=== PATIENT | male | born 1960 | race Caucasian/White ===

== ENCOUNTER 2023-11-21 13:58 | Outpatient (AMB) | payer OTHER, SELFPAY ==
[2023-11-21 14:04] VITALS: BP 90/60; PULSE 85; RESP 12; TEMP 36.4; O2SAT 98; BMI 23.4
--- NOTE | 2023-11-21 14:04 | MHC.PC.OV ---
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 ?? Prior PCP:?Dr Godinez Last office visit/CPE:? 3 yrs ago Acute issue(s):? Concern for Urology [facility] Lumps of skin ?? PMHx:? Hx Substance abuse in remission, L Femur Fx. Bee sting allergy SurgHx:?L femur ORIF. Lt Hip FHx:?Mom: Cancer (unknown origin). Dad: EtOH. SocHx:? Smoking 3/4 ppd. EtOH None. Cocaine. Acid in 90s HPI Comments History of Present Illness Details Documentation assistance for Gabo Degroot MD, was provided by William Clifton,? [employer] on 11/21/2023 at 2:48 PM EST. I, Dr. Degroot, have read, observed, and verified documentation. [facility] Medical History (Updated 11/21/23 @ 14:47 by William Clifton) Femur fracture, left Surgical History (Updated 11/21/23 @ 14:30 by William Clifton) History of left hip replacement Social History Housing: Apartment Patient Tobacco Use Status: Current everyday Tobacco user Tobacco use type: Cigarette Cigarette Packs Per Day: 20 Cigarettes Per Day: 12 e-Cigarette/Vaping Use: Never Used Second Hand Smoke Exposure: Yes service: No Current occupational status: employed Current occupation: maintence Current occupational exposures/hazards: Yes Cognitive needs: No Hearing needs: No Vision needs: Yes Questionnaire PHQ-9 Over the last 2 weeks, how often have you been bothered by any of the following problems? 1. Little interest or pleasure in doing things: not at all 2. Feeling down, depressed, or hopeless: not at all 3. Trouble falling or staying asleep, or sleeping too much: not at all 4. Feeling tired or having little energy: not at all 5. Poor appetite or overeating: nearly every day 6. Feeling bad about yourself - or that you are a failure or have let yourself or your family down: not at all 7. Trouble concentrating on things, such as reading the newspaper or watching television: not at all 8. Moving or speaking so slowly that other people could have noticed. Or the opposite - being so fidgety or restless that you have been moving around a lot more than usual: not at all 9. Thoughts that you would be better off or of hurting yourself in some way: not at all Total score: 3 Depression Screening Interpretation: Negative Depression Screening Done: Yes 88149 - PHQ-9 Billing: Yes Source: Developed by Drs. Richard Heredia, Aide Medina, Dorian Limon and colleagues, with an educational ivelisse from [employer]. Thrive Questionnaire Date Thrive assessed: 11/21/23 I am a: Patient What is your living situation today?: I have a steady place to live Within the past 12 months, did the food you bought not last and you didn't have the money to get more?: Never true Within the past 12 months, did you worry whether your food would run out before you got money to buy more?: Never true Do you have trouble paying for medicines?: No Do you have trouble getting transportation to medical appointments?: No Do you have trouble paying your heating and electricity bill?: No Do you have trouble taking care of your child, family member or friend?: No Do you have trouble with day-to-day activities such as bathing, preparing meals, shopping, managing finances, etc.?: No Are you currently unemployed and looking for a job?: No Are you interested in more education?: No Please select the resources that you would like help with: None Currently or been in a relationship where the following occur: No concerns reported THRIVE Score: 0 AUDIT C Alcohol Use Questionnaire (AUDIT-C) 1. How often do you have a drink containing alcohol?: Never 3. How often do you have six or more drinks on one occasion?: Never Total Score: 0 Score Reviewed/Action Taken: Yes SOPHIA-7 AMB Questionnaire SOPHIA-7 Date SOPHIA - 7 assessed: 11/21/23 Feeling nervous, anxious, or on edge: 0 = Not at all Not being able to stop or control worryin = Not at all Worrying too much about different things: 0 = Not at all Trouble relaxin = Not at all Being so restless that it is hard to sit still: 0 = Not at all Becoming easily annoyed or irritable: 0 = Not at all Feeling afraid as if something awful might happen: 0 = Not at all Total SOPHIA-7 score (0-4 normal; 5-9 mild; 10-14 moderate; 15-21 severe): 0 Source: Developed by Drs. Richard Heredia, Aide Medina, Dorian Limon and colleagues, with an educational ivelisse from [employer]. SOPHIA-7 Assessment Billing SOPHIA-7 Assessment Tool: SOPHIA-7 Assessment 18536 Review of Systems Const Denies chills, Denies fatigue, Denies fever(s), Denies headache(s) and Denies weakness ENT Denies dizziness and Denies headache(s) Card Denies chest pain, Denies lightheadedness, Denies dyspnea and Denies other (Palpitations) Resp Denies cough, Denies dyspnea, Denies wheezing and Denies other ( shortness of breath) Musc Denies numbness and Denies tingling Neuro Denies dizziness, Denies headache(s), Denies numbness, Denies tingling, Denies paresthesias and Denies weakness Psych Denies anxiety and Denies depression Endo Denies fatigue Aller/Immun Denies wheezing Physical exam (Primary Care) BMI result Body Mass Index 23.4 Depression Screening Interpretation: Negative Currently or been in a relationship where the following occur: No concerns reported Const General: no acute distress and well developed Nutritional Appearance: well nourished Orientation/consciousness: patient oriented x3 HENMT Head: Yes normocephalic and Yes atraumatic Eyes General: appearance normal, both eyes and all related structures Pupils: Equal, round and reactive pupils present EOM: EOMs intact bilaterally Resp Effort & Inspection: normal respiratory effort Auscultation: clear to auscultation bilaterally Cardio Rate: regular rate Rhythm: regular rhythm Heart sounds: S1 normal heart sound present, S2 normal heart sound present, no gallops, no murmurs and no rubs Neuro General: patient oriented x3 and gait normal Cranial nerves: Yes Equal, round and reactive pupils present Psych Affect: normal affect Assessment and Plan Assessment & Plan (1) Acute cystitis without hematuria: Code(s): N30.00 - Acute cystitis without hematuria Plan: Patient?had?episode?of?acute?urinary?retention?and?cystitis?without?hematuria Was?followed?by?Urology?but?lost?insurance?and?was?unable?to?follow-up. Will?check?urinalysis?and?urine?cytology Referring?him?back?to?[facility]?urology?for?further?evaluation?and?treatment Also?strongly?recommended?quitting?smoking-see?below Continue?tamsulosin (2) Acute urinary retention: Code(s): R33.8 - Other retention of urine Plan: As?above (3) History of left hip replacement: Code(s): Z96.642 - Presence of left artificial hip joint Plan: Stable (4) Lump on neck: Code(s): R22.1 - Localized swelling, mass and lump, neck Plan: Patient?has?fluctuant?and?mobile?lump?on?neck?and?back, consistent?with?lipoma. No?intervention?is?required?at?this?time He?will?let?me?know?if?this?gets?irritated?or?larger?at?which?point?we?could?refer?him?to?Dermatology?for?removal (5) Lump of skin of back: Code(s): R22.2 - Localized swelling, mass and lump, trunk Plan: As?above (6) Smoker: Code(s): F17.200 - Nicotine dependence, unspecified, uncomplicated Plan: Patient?has?been?smoking?an?equivalent?of?greater?than?20?pack?years Qualifies?for?low-dose?CT?screening - ordered We?discussed?smoking?cessation?and?patient?wants?to?try?Chantix - sent?script We?can?follow-up?at?next?visit (7) History of substance abuse: Code(s): F19.11 - Other psychoactive substance abuse, in remission Plan: Distant?history?of?substance?abuse No?longer?using?any?substances?x?many?years (8) Laboratory exam ordered as part of routine general medical examination: Code(s): Z00.00 - Encounter for general adult medical examination without abnormal findings Plan: Check?labs Orders: Orders Comprehensive [place]. Panel Fast Today Z00.00 - Encounter for general adult medical examination without abnormal findings Microalbumin, Random (w Creat) Today I10 - Essential (primary) hypertension Complete Blood Count Auto Diff Today Z00.00 - Encounter for general adult medical examination without abnormal findings CT lung screening Today F17.200 - Nicotine dependence, unspecified, uncomplicated Prostate Specific Antigen Scr Today Z12.5 - Encounter for screening for malignant neoplasm of prostate Lipid Panel Today Z00.00 - Encounter for general adult medical examination without abnormal findings UA and rflx microscopic Today Z00.00 - Encounter for general adult medical examination without abnormal findings TSH reflex Free T4 Today Z00.00 - Encounter for general adult medical examination without abnormal findings Urine Cytology Today N30.00 - Acute cystitis without hematuria, R33.8 - Other retention of urine Referrals Urology Referral N30.00 - Acute cystitis without hematuria Coding Level of Care Code New Pt Level 3 (87003) Diagnoses Acute cystitis without hematuria N30.00 Acute urinary retention R33.8 History of left hip replacement Z96.642 Lump on neck R22.1 Lump of skin of back R22.2 Smoker F17.200 History of substance abuse F19.11 Laboratory exam ordered as part of routine general medical examination Z00.00 Additional Codes SOPHIA-7 Assessment Billing - SOPHIA-7 Assessment Tool: SOPHIA-7 Assessment 13051 ([id number])
== END 2023-11-21 14:52 | disposition home or self-care (01) ==
PROVIDERS: PCP Family Medicine; Visit Provider Family Medicine
DX: N30.00 Acute cystitis without hematuria (principal); R33.8 Other retention of urine; F19.11 Other psychoactive substance abuse, in remission; Z96.642 Presence of left artificial hip joint; R22.1 Localized swelling, mass and lump, neck; R22.2 Localized swelling, mass and lump, trunk; F17.210 Nicotine dependence, cigarettes, uncomplicated
CPT/HCPCS: 99203

== ENCOUNTER 2023-12-12 11:58 | Emergency (ER) | payer OTHER, SELFPAY ==
--- NOTE | 2023-12-12 12:30 | ED.GENADULT ---
HPI - General Adult General Chief complaint: Abdominal Pain Stated complaint: Unable to urinate Time Seen by Provider: 12/12/23 13:02 Source: patient, family and old records reviewed Mode of arrival: ambulatory Limitations: no limitations History of Present Illness ED Provider: LUCI HAGAN narrative: 63 yo male with PMH of enlarged prostate prior doll cath back in May and UTI in past though no cultures in our system here with c/o 4 days dysuria and feeling he is not emptying his bladder. He denies n/v flank pain or fevers. Has PCP now and follow up with Urology in December. MD complaint: dysuria and retention Onset (ago): day(s) (4) Location: abdomen Radiation: abdomen Severity: mild Quality: burning Pain Consistency: intermittent Relieving factors: none Exacerbating factors: other (urination) Associated symptoms: denies other symptoms Treatments prior to arrival: none Related Data Home Medications ?Medication ?Instructions ?Recorded ?Confirmed epinephrine 0.3 mg/0.3 mL 0.3 mg IM Q4H PRN 11/21/23 11/21/23 injection, auto-injector tamsulosin 0.4 mg capsule 0.4 mg PO DAILY 11/21/23 11/21/23 Previous Rx's ?Medication ?Instructions ?Recorded varenicline 0.5 mg (11)-1 mg (42) See Rx Instructions PO PER PKG DIR 11/21/23 tablets in a dose pack #53 ea cefuroxime axetil 250 mg tablet 250 mg PO BID 10 days #20 tabs 12/12/23 Allergies Allergy/AdvReac Type Severity Reaction Status Date / Time bee pollen Allergy Anaphylaxis Verified 12/12/23 12:36 Review of Systems Review of Systems: Constitutional : No Weight loss, No Fever, No Chills ENT/Mouth : No sore throat, No Rhinorrhea Eyes: No Swelling, No Redness Cardiovascular : No Chest Pain, No SOB, NoEdema Respiratory : No Cough, No Sputum, No Wheezing Gastrointestinal : no Nausea, no Vomiting, no Diarrhea, positive abdominal Pain, No Hematochezia, No Melena Genitourinary : pos Dysuria, No Urinary Frequency, No Hematuria, No Urgency Musculoskeletal : No joint pain, No Myalgias, No Joint Swelling Skin : No Skin Lesions, No rash Neuro : No Weakness, No Numbness, No Dizziness, No Headache All other systems reviewed and are negative. PMFSH Past Medical History Attestation statement: The following information was validated with the patient. Source: old records reviewed Medical History Femur fracture, left Surgical History History of left hip replacement Social History Social History Housing: Apartment Patient Tobacco Use Status: Current everyday Tobacco user Tobacco use type: Cigarette Cigarette Packs Per Day: 20 Cigarettes Per Day: 12 e-Cigarette/Vaping Use: Never Used Second Hand Smoke Exposure: Yes Advance Directives: No Advance Directives Information Provided: Yes service: No Current occupational status: employed Current occupation: maintence Current occupational exposures/hazards: Yes Cognitive needs: No Hearing needs: No Vision needs: Yes Physical Exam ED Vital Signs: Vital Signs - 24 hr 12/12/23 12:31 Temperature 98.6 F Pulse Rate 90 Respiratory Rate 16 Blood Pressure 116/79 Pulse Oximetry 97 Oxygen Delivery Method Room Air BMI result Body Mass Index 23.7 Appearance: Alert. Oriented X3. No acute distress. Eyes: Pupils equal, round and reactive to light. ENT: Pharynx normal. Neck: Normal inspection. Neck supple. CVS: Normal heart rate and rhythm. Pulses normal. Respiratory: No respiratory distress. Breath sounds normal. Abdomen: Soft and nontender. Skin: Skin warm and dry. Normal skin color. Normal skin turgor. Extremities: No lower extremity edema. No calf ttp Neuro: Oriented X 3. No motor deficit. No sensory deficit. Course Course Course Narrative: This is a Rapid Medical Examination (RME) performed by Ramiro Weeks PA-C in triage. Full HPI, ROS, assessment and treatment plan per primary provider in the Main ED. 63 yo male here for eval of urinary hesitancy, incomplete bladder emptying, dysuria, lower abd pain x4 days. able to urinate small amount ROLFER in ED. taking flomax as prescribed. hx of acute cystitis w/ enlarged prostate requiring doll cath in 05/2023. has f/u w/ urologist next month for prostate eval/ cancer testing. no fever/ chills, N/V, flank pain, hematuria. + well appearing, drinking coffee. abd soft, ND/NT. Plan: labs, UA Medical Decision Making Medical Decision Making [facility] Narrative: 63 yo male with PMH of enlarged prostate prior doll cath back in May and UTI here with c/o retention though PVR only 185 at this time labs and UA ordered suspect UTI vs retention bases off history. He has no n/v or fevers and no pain to suggest stone. He is not retaining so I do not want to place doll and he has good outpatient follow up. Will order PSA his PCP can follow up with he is aware they need to follow up Differential Diagnosis Differential Diagnoses: The differential diagnosis associated with the presentation includes retention, UTI Admission/Observation Consideration of admission/observation: Escalation of care including admission/observation considered afebrile, normal kidney function, no vomiting no retention can be started on abx and DC home Lab Data [facility] Lab Attestation statement: I reviewed the patient's lab results. 12/12/23 12:45 12/12/23 12:45 Labs: Lab Results 12/12/23 Range/Units 12:45 WBC 8.4 (4.8-10.8) X10*3/uL RBC 4.88 (4.60-5.80) X10*6/uL Hgb 16.2 (14.0-18.0) g/dl Hct 46.3 (42.0-52.0) % MCV 94.9 (80.0-98.0) fL MCH 33.2 H (27.0-33.0) pg MCHC 35.0 (31.0-36.0) g/dl RDW 13.2 (11.0-16.0) % Plt Count 227 (160-400) X10*3/uL MPV 8.6 L (9.4-12.4) fL Immature Gran % (Auto) 0.2 (0.0-0.4) % Neut % (Auto) 66.4 (45-73) % Lymph % (Auto) 21.3 (20-40) % [place] % (Auto) 7.6 (2-11) % Eos % (Auto) 3.9 (0-4) % Baso % (Auto) 0.6 (0-2) % Lymph # (Auto) 1.8 (1.2-4.9) X10*3/uL [place] # (Auto) 0.6 (0.1-1.2) X10*3/uL Eos # (Auto) 0.3 (0.0-0.4) X10*3/uL Baso # (Auto) 0.1 (0.0-0.2) X10*3/uL Abs Immat Gran (auto) 0.02 (0.00-0.03) X10*3/uL Absolute Neuts (auto) 5.6 (2.0-8.3) x10*3/uL Absolute Nucleated RBC 0.000 (0.0-0.012) X10*3/uL Nucleated RBC % (auto) 0.0 (0.0-0.2) /100WBC Sodium 140 (135-145) mmol/L Potassium 4.6 (3.3-5.1) mmol/L Chloride 109 H (96-108) mmol/L Carbon Dioxide 25 (22-29) mmol/L Anion Gap 11 L (12-20) BUN 18 H (9-16) mg/dL Creatinine 1.01 (0.5-1.4) mg/dL Estim Creat Clear Calc 75.8 Estimated GFR > 60 Random Glucose 141 H (60-115) mg/dL Calcium 9.9 (8.4-10.2) mg/dL Total Bilirubin 0.5 (0.0-1.0) mg/dL AST 15 (5-37) U/L ALT 15 (0-40) U/L Alkaline Phosphatase 73 (39-117) U/L Total Protein 6.0 L (6.5-8.0) g/dL Albumin 3.6 (3.5-5.0) g/dL Urine Color Yellow Urine Appearance Turbid Urine pH 7.5 (5.0-9.0) Ur Specific [place] 1.020 (1.005-1.025) Urine Protein 300 (3+) H (Neg-Trace) mg/dL Urine Glucose (UA) Negative (Negative) mg/dL Urine Ketones Negative (Negative) mg/dL Urine Blood Moderate (2+) H (Negative) Urine Nitrite Negative (Negative) Ur Leukocyte Esterase Large (3+) H (Negative) Urine RBC 6-10 H (0-2) /HPF Urine WBC >50 H (0-5) /HPF Ur Squamous Epith Cells 0-2 (0-2) /HPF Urine Bacteria 4+ (None Seen) Hyaline Casts 3-5 (0-2) /LPF Independent Historian Clinical information obtained from an independent historian. History obtained from or confirmed by: Other (family) External Record Review External record reviewed: Office record Prescription Management I considered prescription management with: Antibiotic Discharge Plan Discharge Clinical Impression: Acute UTI Patient Disposition: Home, Self-Care Instructions: Urinary Tract Infection in Men (ED) Additional Instructions: labs reassuring kidney function normal take next dose of antibiotic before bed tonight continue the flomax you were not retaining urine after you voided return for fevers, severe back pain, vomiting or any other concerns a PSA was sent off your PCP can follow up or urology Prescriptions: New cefuroxime axetil 250 mg tablet 250 mg PO BID 10 Days Qty: 20 0RF No Action tamsulosin 0.4 mg capsule 0.4 mg PO DAILY epinephrine 0.3 mg/0.3 mL auto-injector 0.3 mg IM Q4H PRN varenicline 0.5 mg (11)- 1 mg (42) tablets,dose pack See Rx Instructions PO PER PKG DIR Qty: 53 0RF Rx Instructions: PO PER PKG DIR Print Language: Japanese
[2023-12-12 12:31] VITALS: BP 116/79; PULSE 90; RESP 16; TEMP 37; O2SAT 97; BMI 23.7
[2023-12-12 12:52] LABS: MANUAL DIFF FLAG NO
[2023-12-12 12:55] LABS: Appearance Urine Turbid; Basophils Absolute Auto 0.1 X10*3/uL (0.0-0.2); Basophils Percent Auto 0.6 % (0-2); Color Urine Yellow; Eosinophils Absolute Auto 0.3 X10*3/uL (0.0-0.4); Eosinophils Percent Auto 3.9 % (0-4); Glucose Urine UA Negative (Negative); Hematocrit 46.3 % (42.0-52.0); Hemoglobin 16.2 g/dl (14.0-18.0); Imm Gran Abs Auto 0.02 X10*3/uL (0.00-0.03); Imm Gran Pct Auto 0.2 % (0.0-0.4); Leukocyte Esterase Urine Large (3+) (Negative); Lymphocytes Absolute Auto 1.8 X10*3/uL (1.2-4.9); Lymphocytes Percent Auto 21.3 % (20-40); Mean Corpuscular Hemoglobin 33.2 pg (27.0-33.0); Mean Corpuscular Volume 94.9 fL (80.0-98.0); Mean Platelet Volume 8.6 fL (9.4-12.4); Monocytes Absolute Auto 0.6 X10*3/uL (0.1-1.2); Monocytes Percent Auto 7.6 % (2-11); Neutrophils Absolute Auto 5.6 x10*3/uL (2.0-8.3); Neutrophils Percent Auto 66.4 % (45-73); Nitrite Urine Negative (Negative); PH 7.5 (5.0-9.0); Platelet Count 227 X10*3/uL (160-400); Red Blood Count 4.88 X10*6/uL (4.60-5.80); Red Cell Distribution Width 13.2 % (11.0-16.0); UMIC TRIGGER UACC YES; Urine Blood Moderate (2+) (Negative); Urine Ketones Negative (Negative); Urine Protein 300 (3+) mg/dL (Neg-Trace); White Blood Count 8.4 X10*3/uL (4.8-10.8)
[2023-12-12 13:06] LABS: Bacteria Urine 4+ (None Seen); Squamous Epithelial Cell Urine 0-2 /HPF (0-2); UACC Culture Trigger YES; WBC Urine >50 /HPF (0-5)
[2023-12-12 13:16] LABS: Alanine Aminotransferase 15 U/L (0-40); Albumin Level 3.6 g/dL (3.5-5.0); Alkaline Phosphatase 73 U/L (39-117); Anion Gap 11 (12-20); Aspartate Amino Transferase 15 U/L (5-37); Bilirubin Total 0.5 mg/dL (0.0-1.0); Blood Urea Nitrogen 18 mg/dL (9-16); Calcium 9.9 mg/dL (8.4-10.2); Carbon Dioxide 25 mmol/L (22-29); Chloride 109 mmol/L (96-108); Creatinine Clr Calc Pharmacy 75.8; Estimated Glomerular Filt Rate > 60; Glucose Random 141 mg/dL (60-115); Potassium 4.6 mmol/L (3.3-5.1); Sodium 140 mmol/L (135-145)
[2023-12-12] MEDS: cefuroxime axetiL 250 MG TABLET PO (13:38)
[2023-12-12 13:58] VITALS: BP 116/79; PULSE 90; RESP 16; TEMP 37; O2SAT 97
[2023-12-12 14:35] LABS: Prostate Specific Antigen Scr 1.65 ng/mL (<0.05-4.0)
== END 2023-12-12 14:01 | disposition home or self-care (01) ==
PROVIDERS: Physician Assistant Medical; Emergency Provider Emergency Medicine; PCP Family Medicine
DX: N39.0 Urinary tract infection, site not specified (principal); R30.0 Dysuria; F17.210 Nicotine dependence, cigarettes, uncomplicated; F19.11 Other psychoactive substance abuse, in remission; Z79.899 Other long term (current) drug therapy
CPT/HCPCS: 36415; 51798; 80053; 81001; 84153; 85025; 87086; 87147; 99283; 99284

== ENCOUNTER 2024-01-26 15:21 | Outpatient (REF) | payer OTHER, SELFPAY ==
[2024-01-26 17:17] LABS: Urine Cytology See Pathology rpt
== END 2024-01-26 15:22 | disposition home or self-care (01) ==
LOC: HO.LNP 15:21
PROVIDERS: PCP Family Medicine; Visit Provider Nurse Practitioner Family
DX: Z87.898 Personal history of other specified conditions (principal); N39.41 Urge incontinence; R39.15 Urgency of urination; R33.9 Retention of urine, unspecified; F17.200 Nicotine dependence, unspecified, uncomplicated
CPT/HCPCS: 51798; 81003; 88112; 99202

== ENCOUNTER 2024-01-26 15:21 | Outpatient (AMB) | payer OTHER, SELFPAY ==
--- NOTE | 2024-01-26 15:24 | A.OFFVIS_ITS ---
Intake Visit Reasons: acute cystitis without hematuria Intake Note: New Patient presents for initial visit for cystitis and urinary retention Urology Medications: tamsulosin Blood Thinner: none PVR: 250ml's Senior Construction Manager Required: No Accompanied by: Unknown Allergies bee pollen Allergy (Verified 01/26/24 20:32) Anaphylaxis Medication List - Last Reconciled 01/26/24 by CELSA Mccann epinephrine 0.3 mg IM Q4H PRN tamsulosin 0.4 mg PO DAILY varenicline PO PER PKG DIR HPI Comments Details: Kevin Butts is a very pleasant 63-year-old male patient of Dr. Degroot who was accompanied by his significant other at today's office visit. Has a past medical history of left femur fracture in 2021. He presents to the office today as a new patient for ongoing urological issues. He reports initially symptoms started status post left femur fracture repair when he experienced episode of urinary retention. He reports previously following up with [facility] however lost his insurance and was unable to follow- up. He discusses having had what sounds like an in office cystoscopy and being told he potentially had bladder cancer however never underwent further treatment options as he lost his insurance. In office urinalysis results reviewed with the patient today no microscopic hematuria noted. However PVR 250 mL. We discussed at length potential causes for bladder cancer as well as incomplete bladder emptying. Discussed obtaining CT urogram and repeat in office cystoscopy for further assessment evaluation. He does have a longstanding history of nicotine dependence for over 40 years. He reports he has started Chantix with his PCP in attempt to quit smoking. He also notes upon in office cystoscopy with previous urologist there was mentioned of a potential need for prostate procedure. In review of patient's chart it appears PSA 12/22 1.7. He does report noting at times issues with urinary hesitancy and feeling of incomplete bladder emptying. Reports compliance with Flomax 0.4 mg daily as prescribed by previous urology group. He otherwise denies urinary urgency, urinary frequency, incontinence, nocturia, dysuria, foul smelling urine, changes to urinary stream, flank pain, fever, and or chills. [facility] Medical History Femur fracture, left Surgical History History of left hip replacement Social History Housing: Apartment Patient Tobacco Use Status: Current everyday Tobacco user Tobacco use type: Cigarette Cigarette Packs Per Day: 20 Cigarettes Per Day: 12 e-Cigarette/Vaping Use: Never Used Second Hand Smoke Exposure: Yes service: No Current occupational status: employed Current occupation: maintence Current occupational exposures/hazards: Yes Cognitive needs: No Hearing needs: No Vision needs: Yes Review of Systems Const All systems reviewed & are unremarkable except as noted in HPI and below Physical Exam Const General: cooperative, healthy appearing, comfortable, no acute distress, well developed, alert and awake Orientation/consciousness: patient oriented x3 Limitations: no limitations HEENT Head: Yes normal to inspection, Yes normocephalic and Yes atraumatic Ears: hearing grossly normal bilaterally Eyes General: appearance normal, both eyes and all related structures Neck Neck: Yes normal visual inspection and Yes trachea midline Chest Chest palpation & inspection: normal inspection of the chest Resp Effort & Inspection: normal respiratory effort and able to speak in complete sentences Cardio Rate: regular rate GI Inspection: Yes normal to inspection General: Yes no CVA tenderness Back/Spine/Pelvis Back: no CVA tenderness Skin General skin exam: no rashes or lesions noted Neuro General: patient oriented x3 Extrem General: Yes normal to inspection Psych Appearance: grossly normal and well kempt Mental Status: mental status grossly normal Speech and movement: Normal speech and movement present and Clear speech present Affect: normal affect Attitude: cooperative Thought process: Normal thought process present Thought content: Normal thought content present Insight: Fair insight present (Psych) Judgement: Fair judgement present (Psych) Office Procedures Post Void Residual Post Residual Void Post Void Residual (PVR): 250 [id number]-[id number] Void Residual by ultrasound Results AMB Urinalysis, Automated UA Leukoctes 0 Christoph/uL Last Edit by Cyril Bond on 01/26/24 16:26 UA Nitrite Last Edit by Cyril Bond on 01/26/24 16:26 UA Urobilinogen 0.2 mg/dL Last Edit by Cyril Bond on 01/26/24 16:26 UA Protein 15 mg/dL Last Edit by Cyril Bond on 01/26/24 16:26 UA pH 6.0 Last Edit by Cyril Bond on 01/26/24 16:26 UA Blood 0 Tony/uL Last Edit by Cyril Bond on 01/26/24 16:26 UA Specific [place] 1.030 Last Edit by Cyril Bond on 01/26/24 16:26 UA Ketone Last Edit by Moda Operandibrenda Bond on 01/26/24 16:26 UA Bilirubin 0 mg/dL Last Edit by Cyril Bond on 01/26/24 16:26 UA Glucose 0 mg/dL Last Edit by Cyril Bond on 01/26/24 16:26 Results Reviewed Results Reviewed: Laboratory Last Values Urine pH (Auto) 6.0 01/26/24 16:25 Specific [place] (Auto) 1.030 01/26/24 16:25 Urine Protein (Auto) 15 mg/dL 01/26/24 16:25 Glucose (UA)(Auto) 0 mg/dL 01/26/24 16:25 Urine Blood (Auto) 0 Tony/uL 01/26/24 16:25 Urine Bilirubin (Auto) 0 mg/dL 01/26/24 16:25 Urine Urobilinogen (Auto) 0.2 mg/dL 01/26/24 16:25 Leukocyte Esterase (Auto) 0 Christoph/uL 01/26/24 16:25 Assessment & Plan Assessment & Plan (1) Smoker: Code(s): F17.200 - Nicotine dependence, unspecified, uncomplicated Category: Social Hx (2) Incomplete bladder emptying: Code(s): R33.9 - Retention of urine, unspecified Category: Medical (3) History of gross hematuria: Code(s): Z87.898 - Personal history of other specified conditions Category: Medical Plan In office urinalysis results reviewed with the patient today; as noted above; will send for urine cytology. Will obtain CT urogram for further assessment evaluation. BUN and creatinine ordered for imaging. Medical release form signed will attempt to obtain previous urology records for continuity of care. Discussed attempting to sit when voiding to relax pelvis to assist with incomplete bladder emptying. We discussed at length potential causes of incomplete bladder emptying as well as bladder cancer. Discussed, educated, and stressed the importance of quitting/limiting nicotine dependence for overall health and well-being. Discussed increase in Flomax given PVR today 250 mL; prescription provided. Follow-up in office cystoscopy with imaging and labs to be completed prior; or sooner with any issues, concerns, and or questions. Orders: Orders CT urogram Today F17.200 - Nicotine dependence, unspecified, uncomplicated, R31.0 - Gross hematuria Blood Urea Nitrogen Today R39.15 - Urgency of urination AMB Urinalysis Automated Today Z13.9 - Encounter for screening, unspecified Urine Cytology Today Z87.898 - Personal history of other specified conditions Creatinine Today R39.15 - Urgency of urination AMB Post Void Residual by ultrasound Today N39.41 - Urge incontinence Medications: Changed From tamsulosin 0.4 mg PO DAILY To tamsulosin this is an increase in dose 0.8 mg (2 x 0.4 mg) PO DAILY 180 caps 1RF 90 days Patient Instructions: The patient had an opportunity to ask questions regarding the treatment plan. All questions were answered. Physical exam, labs, and imaging were discussed and reviewed in detail. As well as risks, benefits, and discussion of treatment choices. No major barriers to understanding were identified. The patient expressed understanding and agreement with the above treatment plan. The patient was made aware they should contact our office by phone for worsening of their current condition, the appearance of new symptoms, or with any questions or concerns. Compliance is encouraged with any medications and follow up testing that is ordered. It is a privilege to be allowed the opportunity to participate in? your urological care.? Again, if you have any questions or concerns If you have any questions or concerns please do not hesitate to contact me. The office is [phone]. This note is constructed using voice recognition software. While every effort has been made to ensure accuracy rental manager errors may have been included. Yours sincerely, CELSA Mccann Coding Level of Care Code New Pt Level 4 (29581) Diagnoses Smoker F17.200 Incomplete bladder emptying R33.9 History of gross hematuria Z87.898 CPT Codes Post Residual Void - PVR CPT Code: 78737-Rpzz Void Residual by ultrasound ([id number]) Time Spent (min) 35
== END 2024-01-26 16:20 | disposition home or self-care (01) ==
LOC: HO.HUSH 15:22
PROVIDERS: PCP Family Medicine; Visit Provider Nurse Practitioner Family
DX: F17.200 Nicotine dependence, unspecified, uncomplicated (principal); R33.9 Retention of urine, unspecified; Z87.898 Personal history of other specified conditions; Z13.9 Encounter for screening, unspecified
CPT/HCPCS: 99204

== ENCOUNTER 2024-03-22 15:30 | Outpatient (REF) | payer OTHER, SELFPAY ==
--- NOTE | ~2024-03-22 | CT_ITS ---
EXAMINATION: CT UROGRAM - CT ABDOMEN AND PELVIS WITHOUT AND WITH CONTRAST CLINICAL INFORMATION: Gross hematuria COMPARISON: None TECHNIQUE: Multidetector volumetric imaging was performed through the abdomen prior to IV contrast. The abdomen and pelvis were then reexamined after the administration of 85 cc of Omnipaque 350 intravenous contrast. Additional 2-D coronal and sagittal reformatted images and axial 3-D maximum intensity projection MIP images are generated on the CT workstation. This CT examination was performed using dose optimization techniques as appropriate, variously including the following: *Automated exposure control *Adjustment of mA and/or kV according to patient size (this includes techniques or standardized protocols for targeted exams where dose is matched to indication/reason for exam; i.e. extremities or head) *Use of iterative reconstruction technique DLP: 775 mGy-cm UROGRAPHIC FINDINGS: Noncontrast imaging through the kidneys ureters and bladder show no urinary tract calculi. After the injection of contrast, there was prompt excretion bilaterally with symmetric CT nephrograms. The right kidney measures 11.6 cm and the left kidney measures 11.2 cm in maximal length. The pelvicalyceal systems show some mild fullness but no hydronephrosis. No mucosal abnormalities are pelvicalyceal filling defects are seen. There is single ureters which follow a normal course to the bladder. There are 2 posterolateral bladder diverticula present measuring just over 3 cm in size bilaterally. Each has a neck of 1 cm or less. No bladder masses are seen. This study in no way excludes bladder neoplasm and cystoscopy/urine cytology plays a role given the negative MRI evaluation of the upper tracts. NON-UROGRAPHIC FINDINGS: Lung Bases: The visualized lung bases are unremarkable. Liver, Gallbladder and Biliary Tree: The liver is enlarged at 18.5 cm in greatest length. Attenuation on noncontrast imaging is greater than the spleen. No focal hepatic lesion or biliary ductal dilatation is present. The gallbladder is unremarkable with no evidence of radiopaque gallstones, gallbladder wall thickening, or obvious pericholecystic inflammatory changes. Pancreas: Unremarkable. Spleen: Unremarkable. Adrenal Glands: Unremarkable. Gastrointestinal Tract: The small and large bowel are unremarkable. The appendix is unremarkable. Abdominal Wall: No significant hernia is appreciated. Lymph Nodes: Normal. Vascular: Unremarkable. Pelvic Viscera: Unremarkable. Osseous Structures: Degenerative changes are present throughout the spine most marked in the lower thoracic region as well as head L5-S1 left total hip prosthesis is present. CT/CT urogram IMPRESSION: 1. A cause for the patient's gross hematuria has not been found. 2. Incidental note made of 2 bladder diverticula, mild hepatomegaly and degenerative changes in the spine as well as other findings described above. Electronically signed by: Diego Noriega MD 03/23/2024 05:38 PM [facility]
[2024-03-22] MEDS: iohexoL 350 MG/ML 100 ML INFUS..BTL 85 ML IV (16:37)
[2024-03-26 07:13] LABS: Creatinine POC 1.1 mg/dL (0.5-1.4); GFR POC > 60
== END 2024-03-22 15:31 | disposition home or self-care (01) ==
LOC: HO.CT 15:30
PROVIDERS: PCP Family Medicine; Visit Provider Nurse Practitioner Family
DX: R31.0 Gross hematuria (principal); F17.200 Nicotine dependence, unspecified, uncomplicated
CPT/HCPCS: 74178; 82565; Q9967

== ENCOUNTER 2024-03-25 09:44 | Outpatient (AMB) | payer OTHER, SELFPAY ==
--- OUTSIDE RECORDS SUMMARY | 2024-03-25 09:46 | XMS_ITS | Continuity of Care Document ---
Author Organization [facility] Address [address] [place] [address] Phone Care Team Providers Care Fan Balancer Name Role Phone José Miguel Pinto MD Unavailable Unavailable Procedures Procedure Date INITIAL HOSPITAL CARE SUBSEQUENT HOSPITAL CARE Advance Directives Directive Yes / No Effective Date File Name No Information Encounters Encounter Description Practice Location Reason(s) For Visit Diagnoses Date Provider Providers Copied on Encounter [facility], [address], [id number], tel:[phone] Alex Main No Information [place] José Miguel. [address], [place], [id number]. tel:[phone] [facility] [address], [id number], [place] tel:[phone] [facility] IP No Information [place] José Miguel. [address], [place], [id number]. tel:[phone] Family History Family Member Type Diagnosis Age At Onset No Information Payers Payer name Insurance type Covered green party ID Authoriza tion(s) [facility] [id number] Social History Type Description Quantity Date Captured [...]
--- NOTE | 2024-03-25 10:10 | MHC.OFFVIS ---
Intake Visit Reasons: cysto Intake Note: Patient is present for Cystoscopy Urology Medication:TAMSULOSIN Antibiotic Allergy:NONE Blood Thinner:NONE Lot:[id number] Exp:02/01/[address] Supervisor Required: No Allergies bee pollen Allergy (Verified 03/25/24 10:11) Anaphylaxis HPI Comments Details: Luis Enrique is a pleasant male. He is a patient of Dr. Degroot. He seen for the following urologic conditions - lower urinary tract symptoms - microscopic hematuria Here for cystoscopy Large bladder Small diverticula Recommend timed voiding every 4 hours Lower urinary tract symptoms Previously seen had [facility] At one point had an office cystoscopy performed and was there was a lesion within his bladder Had been on Flomax for bladder emptying Longstanding nicotine dependence greater than [address] pack per day CT urogram - There are 2 posterolateral bladder diverticula present measuring just over 3 cm in size bilaterally. Each has a neck of 1 cm or less. No bladder masses are seen. This study in no way excludes bladder neoplasm and cystoscopy/urine cytology plays a role given the negative MRI evaluation of the upper tracts [facility] Medical History Femur fracture, left Surgical History History of left hip replacement Social History Housing: Apartment Patient Tobacco Use Status: Current everyday Tobacco user Tobacco use type: Cigarette Cigarette Packs Per Day: 20 Cigarettes Per Day: 12 e-Cigarette/Vaping Use: Never Used Second Hand Smoke Exposure: Yes service: No Current occupational status: employed Current occupation: maintence Current occupational exposures/hazards: Yes Cognitive needs: No Hearing needs: No Vision needs: Yes Review of Systems Const Denies chills and Denies fever(s) Card Reports no additional complaints and Denies syncope Resp Denies cough GI Denies abdominal pain and Denies heartburn Reports as per HPI and Denies change in libido Neuro Denies syncope Psych Denies change in libido Endo Denies change in libido Physical Exam Const General: cooperative, healthy appearing, comfortable and no acute distress Orientation/consciousness: patient oriented x3 HEENT Face and sinus: Yes normal facial exam Mouth: moist mucous membranes Neck Neck: Yes normal visual inspection, Yes full ROM and Yes trachea midline Chest Chest palpation & inspection: normal inspection of the chest Resp Effort & Inspection: normal respiratory effort, able to speak in complete sentences and no respiratory distress GI Inspection: Yes normal to inspection Back/Spine/Pelvis Cervical Spine: normal cervical lordosis Thoracic/Lumbar Spine: thoracic and lumbar spine normal to inspection Skin General skin exam: no rashes or lesions noted Neuro General: patient oriented x3, gait normal, tone normal and moves all extremities Extrem General: Yes normal to inspection and Yes capillary refill normal Office Procedures Cystoscopy Consent Discussed risk and benefit or proposed procedure with the patient. Information consent for procedure given to the patient. Discussed technical aspects, risks, benefits and alternatives in full. Addressed all of the patient's questions and concerns regarding the procedure. The patient demonstrated knowledge and understanding. They wish to proceed with this procedure. Preparation The patient was prepped in the usual manner. A java development manager was present and in the room. Genitalia was prepped with betadine solution in a sterile manner. Lidocaine Jelly 2% was placed into the urethra and 16Fr flexible Olympus cystoscope was inserted into the meatus after adequate lubrication. Procedure Cystoscopy performed using a disposable Urovue digital 16 Upper Sorbian cystoscope. Meatus circumcised Urethra anterior and posterior urethra normal Prostatic Urethra unremarkable Bladder examination with retroflexion of cystoscope Bladder Orifices normal shape and position Bladder Capacity large Trabeculations grade 2 Cellule Formation yes Diverticulum Formation small Mucosal Erythema - Bladder Tumor - 30460-[id number] DISPOSABLE SCOPE URO-G FLEXIBLE SCOPE Procedure code (CPT) selection complete Office Meds lidocaine HCl 2 % mucosal jelly in applicator Performing Provider: Sigifredo Clark MD [facility] Administered by: Sigifredo Clark MD on 03/25/24 11:16 Dose Route Admin Location Dispensed Lot Number Expiration Date ND Chief Chemist 10 mL intra-urethral 10 mL Results AMB Urinalysis, Automated UA Leukoctes 0 Christoph/uL Last Edit by PAYTON Johnson on 03/25/24 10:25 UA Nitrite Negative Last Edit by PAYTON Johnson on 03/25/24 10:25 UA Urobilinogen 0.2 mg/dL Last Edit by PAYTON Johnson on 03/25/24 10:25 UA Protein 15 mg/dL Last Edit by PAYTON Johnson on 03/25/24 10:25 UA pH 6.0 Last Edit by Angelina Roberts, [facility] on 03/25/24 10:25 UA Blood 0 Tony/uL Last Edit by Angelina Roberts, [facility] on 03/25/24 10:25 UA Specific [place] 1.030 Last Edit by Angelina Roberts, [facility] on 03/25/24 10:25 UA Ketone Negative Last Edit by Angelina Roberts [facility] on 03/25/24 10:25 UA Bilirubin 0 mg/dL Last Edit by Angelina Roberts, [facility] on 03/25/24 10:25 UA Glucose 0 mg/dL Last Edit by Angelina Roberts [facility] on 03/25/24 10:25 Results Reviewed Results Reviewed: Laboratory Last Values Urine pH (Auto) 6.0 03/25/24 10:25 Specific [place] (Auto) 1.030 03/25/24 10:25 Urine Protein (Auto) 15 mg/dL 03/25/24 10:25 Glucose (UA)(Auto) 0 mg/dL 03/25/24 10:25 Urine Ketones (Auto) Negative 03/25/24 10:25 Urine Blood (Auto) 0 Tony/uL 03/25/24 10:25 Urine Nitrite (Auto) Negative 03/25/24 10:25 Urine Bilirubin (Auto) 0 mg/dL 03/25/24 10:25 Urine Urobilinogen (Auto) 0.2 mg/dL 03/25/24 10:25 Leukocyte Esterase (Auto) 0 Christoph/uL 03/25/24 10:25 Assessment & Plan Assessment & Plan (1) Incomplete bladder emptying: Code(s): R33.9 - Retention of urine, unspecified Category: Medical Plan Encouraged home voiding q.4 hours Six-month follow-up PVR Orders: Orders AMB Urinalysis Automated Today Z13.9 - Encounter for screening, unspecified AMB Cystoscopy Today R33.9 - Retention of urine, unspecified Medications: New lidocaine HCl 2% 10 mL intra-urethral ONCE 10 mL 0RF R33.9 - Retention of urine, unspecified Patient Instructions: Imaging studies, laboratory and physical exam results were discussed and reviewed in detail. No major barriers to patient understanding were identified. An opportunity to ask questions regarding the treatment plan was provided. All questions were answered. The patient expressed understanding and agreement with the above treatment plan. The patient is aware they should contact our office by phone for worsening of their current condition or the appearance of new urologic symptoms. Compliance is encouraged with any medications and followup testing that is ordered. It is a privilege to participate in the urologic care of your patient. If you have any questions or concerns regarding treatment for the above conditions, or other urologic issues, please do not hesitate to contact me. The office telephone contact is [phone]. This note is constructed using voice recognition software. While every effort has been made to ensure accuracy wildlife biology technician errors may have been included. Yours sincerely, Dr Sigifredo Clark MD, [facility]rology Providers of Expert, Compassionate Care for the Genitourinary System Coding Level of Care Code Est Pt Level 3 (40240) Diagnoses Incomplete bladder emptying R33.9 CPT Codes Cystoscopy - CPT: 04810-Gxizugtoss ([id number])
== END 2024-03-25 10:54 | disposition home or self-care (01) ==
PROVIDERS: PCP Family Medicine; Visit Provider Urology
DX: R33.9 Retention of urine, unspecified (principal); Z13.9 Encounter for screening, unspecified
CPT/HCPCS: 52000

== ENCOUNTER → 2024-03-25 09:44 | Outpatient (BNVA) | payer OTHER, SELFPAY | PROVIDERS: PCP Family Medicine; Visit Provider Urology | DX: R33.9 Retention of urine, unspecified (principal) | CPT/HCPCS: 52000; 81003 ==

== ENCOUNTER 2024-03-25 16:23 | Outpatient (REF) | payer OTHER, SELFPAY ==
[2024-03-25 16:41] LABS: MANUAL DIFF FLAG NO
[2024-03-25 16:44] LABS: Urine Cytology See Pathology rpt
[2024-03-25 17:10] LABS: Basophils Percent Auto 0.4 % (0-2); Eosinophils Absolute Auto 0.5 X10*3/uL (0.0-0.4); Eosinophils Percent Auto 7.4 % (0-4); Hematocrit 46.3 % (42.0-52.0); Hemoglobin 15.4 g/dl (14.0-18.0); Imm Gran Abs Auto 0.02 X10*3/uL (0.00-0.03); Imm Gran Pct Auto 0.3 % (0.0-0.4); Lymphocytes Absolute Auto 2.4 X10*3/uL (1.2-4.9); Lymphocytes Percent Auto 34.6 % (20-40); Mean Corpuscular HGB Conc 33.3 g/dl (31.0-36.0); Mean Corpuscular Volume 96.1 fL (80.0-98.0); Mean Platelet Volume 8.9 fL (9.4-12.4); Monocytes Absolute Auto 0.5 X10*3/uL (0.1-1.2); Monocytes Percent Auto 7.6 % (2-11); Neutrophils Absolute Auto 3.5 x10*3/uL (2.0-8.3); Neutrophils Percent Auto 49.7 % (45-73); Platelet Count 227 X10*3/uL (160-400); Red Blood Count 4.82 X10*6/uL (4.60-5.80); Red Cell Distribution Width 13.2 % (11.0-16.0)
[2024-03-25 17:15] LABS: Appearance Urine Clear; Color Urine Dark Yellow; Glucose Urine UA Negative (Negative); Leukocyte Esterase Urine Trace (Negative); Nitrite Urine Negative (Negative); PH 5.5 (5.0-9.0); UMIC TRIGGER UA YES; Urine Blood Small (1+) (Negative); Urine Ketones Trace mg/dL (Negative); Urine Protein Trace mg/dL (Neg-Trace)
[2024-03-25 17:37] LABS: Creatinine Urine 208.82 mg/dL; Microalbum/Creatinine Ratio Ur 29.6 ug/mg cr (<30)
[2024-03-25 17:42] LABS: Alanine Aminotransferase 14 U/L (0-40); Albumin Level 3.7 g/dL (3.5-5.0); Alkaline Phosphatase 77 U/L (39-117); Anion Gap 7 (12-20); Aspartate Amino Transferase 21 U/L (5-37); Bilirubin Total 0.5 mg/dL (0.0-1.0); Blood Urea Nitrogen 16 mg/dL (9-16); Calcium 9.1 mg/dL (8.4-10.2); Carbon Dioxide 28 mmol/L (22-29); Chloride 107 mmol/L (96-108); Cholesterol 169 mg/dL (<200); Estimated Glomerular Filt Rate > 60; Glucose Fasting 113 mg/dL (60-99); HDL Cholesterol 41 mg/dL (>40); LDL Cholesterol Calculated 110 mg/dL (<100); Potassium 3.8 mmol/L (3.3-5.1); Sodium 138 mmol/L (135-145); Total Protein 6.2 g/dL (6.5-8.0); Triglycerides 92 mg/dL (<150)
[2024-03-25 17:55] LABS: Prostate Specific Antigen Scr 0.77 ng/mL (<0.05-4.0)
[2024-03-25 17:57] LABS: TSH reflex Free T4 2.01 uIU/mL (0.32-4.0)
[2024-03-25 18:02] LABS: Blood Urea Nitrogen 16 mg/dL (9-16); Estimated Glomerular Filt Rate > 60
[2024-03-25 18:57] LABS: Bacteria Urine None Seen (None Seen); Hyaline Casts Urine 0-2 /LPF (0-2)
== END 2024-03-25 16:24 | disposition home or self-care (01) ==
LOC: HO.LAB 16:23
PROVIDERS: Absent Provider Nurse Practitioner Family; PCP Family Medicine; Visit Provider Family Medicine
DX: Z00.00 Encounter for general adult medical examination without abnormal findings (principal); Z13.9 Encounter for screening, unspecified; R39.15 Urgency of urination; I10 Essential (primary) hypertension; Z12.5 Encounter for screening for malignant neoplasm of prostate; N30.00 Acute cystitis without hematuria; R33.8 Other retention of urine
CPT/HCPCS: 36415; 80053; 80061; 81001; 81003; 82043; 82565; 82570; 84153; 84443; 84520; 85025; 88112

== ENCOUNTER 2024-04-29 12:52 | Outpatient (AMB) | payer OTHER, SELFPAY ==
--- NOTE | 2024-04-29 13:22 | MHC.PC.OV ---
Vital Signs 04/29/24 13:24 Height 5 ft 9 in Weight 167 lb 4 oz BMI 24.7 BP 110/60 Blood Pressure Location Lt brachial Position Sitting Respiration 14 Pulse 80 Pulse Source Pulse Oximeter Temp 97.4 F Temp Source Oral Pulse Oximetry (%) 94 Oxygen Delivery Method Room Air Intake Visit Reasons: burning while urinating Intake Note: burning while urinating currently taking antibiotics Allergies bee pollen Allergy (Verified 04/29/24 13:23) Anaphylaxis Tobacco use date assessed: 11/21/23 Dental Screening Dental Screen Date: 11/21/23 HPI burning while urinating HPI Details 63 y/o male presents today to f/u dysuria. Had already been prescribed an antibiotic from an urgent care though he does not know which antibiotic. He reports symptoms are improving. Does note recurrent UTIs. [facility] Medical History Femur fracture, left Surgical History History of left hip replacement Social History Housing: Apartment Patient Tobacco Use Status: Current everyday Tobacco user Tobacco use type: Cigarette Cigarette Packs Per Day: 20 Cigarettes Per Day: 12 e-Cigarette/Vaping Use: Never Used Second Hand Smoke Exposure: Yes service: No Current occupational status: employed Current occupation: maintence Current occupational exposures/hazards: Yes Cognitive needs: No Hearing needs: No Vision needs: Yes Questionnaire PHQ-9 Over the last 2 weeks, how often have you been bothered by any of the following problems? 1. Little interest or pleasure in doing things: not at all 2. Feeling down, depressed, or hopeless: not at all 3. Trouble falling or staying asleep, or sleeping too much: several days 4. Feeling tired or having little energy: several days 5. Poor appetite or overeating: not at all 6. Feeling bad about yourself - or that you are a failure or have let yourself or your family down: not at all 7. Trouble concentrating on things, such as reading the newspaper or watching television: not at all 8. Moving or speaking so slowly that other people could have noticed. Or the opposite - being so fidgety or restless that you have been moving around a lot more than usual: not at all 9. Thoughts that you would be better off or of hurting yourself in some way: not at all Total score: 2 Source: Developed by Drs. Richard Heredia, Aide Medina, Dorian Limon and colleagues, with an educational ivelisse from [employer]. Thrive Questionnaire Date Thrive assessed: 11/21/23 I am a: Patient What is your living situation today?: I have a steady place to live Within the past 12 months, did the food you bought not last and you didn't have the money to get more?: Never true Within the past 12 months, did you worry whether your food would run out before you got money to buy more?: Never true Do you have trouble paying for medicines?: No Do you have trouble getting transportation to medical appointments?: No Do you have trouble paying your heating and electricity bill?: No Do you have trouble taking care of your child, family member or friend?: No Do you have trouble with day-to-day activities such as bathing, preparing meals, shopping, managing finances, etc.?: No Are you currently unemployed and looking for a job?: No Are you interested in more education?: No Please select the resources that you would like help with: None Currently or been in a relationship where the following occur: No concerns reported THRIVE Score: 0 AUDIT C Alcohol Use Questionnaire (AUDIT-C) 1. How often do you have a drink containing alcohol?: Never Total Score: 0 SOPHIA-7 AMB Questionnaire SOPHIA-7 Date SOPHIA - 7 assessed: 11/21/23 Feeling nervous, anxious, or on edge: 0 = Not at all Not being able to stop or control worryin = Not at all Worrying too much about different things: 0 = Not at all Trouble relaxin = Not at all Being so restless that it is hard to sit still: 0 = Not at all Becoming easily annoyed or irritable: 0 = Not at all Feeling afraid as if something awful might happen: 0 = Not at all Total SOPHIA-7 score (0-4 normal; 5-9 mild; 10-14 moderate; 15-21 severe): 0 Source: Developed by Aide Man Kurt Kroenke and colleagues, with an educational ivelisse from [employer]. Physical exam (Primary Care) Vital Signs: Last Vital Signs Temp 97.4 F 04/29/24 13:24 Pulse 80 04/29/24 13:24 Resp 14 04/29/24 13:24 BP 110/60 04/29/24 13:24 Pulse Ox 94 04/29/24 13:24 Oxygen Delivery Method Room Air 04/29/24 13:24 BMI result Body Mass Index 24.7 Tobacco/Smoking Status: Tobacco use Status Tobacco use date assessed 11/21/23 04/29/24 13:27 Patient Tobacco Use Status Current everyday Tobacco 04/29/24 13:27 Tobacco use type Cigarette 04/29/24 13:27 e-Cigarette/Vaping Use Never Used 04/29/24 13:27 PHQ-9: PHQ-9 Score PHQ-9: Total score 2 04/29/24 13:37 Thrive Assessment: Date of Thrive Assessment Date Thrive assessed 11/21/23 04/29/24 13:27 Currently or been in a relationship where the following occur: No concerns reported Coding Level of Care Code Est Pt Level 4 (73717) Diagnoses Dysuria R30.0 Erectile dysfunction N52.9 Relationship problem between partners Z63.0 Assessment & Plan Assessment & Plan (1) Dysuria: Code(s): R30.0 - Dysuria Category: Medical Plan: Dysuria?has?been?improving?with?antibiotic Finish?all?antibiotic Improve?hydration Urinate?frequently Follow-up?with?urology?as?needed (2) Erectile dysfunction: Code(s): N52.9 - Male erectile dysfunction, unspecified Category: Medical Plan: Patient?notes?worsening?erectile?dysfunction Will?check testosterone?levels Already?followed?by?Urology?for incomplete?voiding With?urology (3) Relationship problem between partners: Code(s): Z63.0 - Problems in relationship with spouse or partner Category: Medical Plan: Patient?and?his?girlfriend?seem?to?have?a?loving?relationship. 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 Will?ask?the?nurse?navigator?to?get?him?and?his?partner?connected?with?a?relationship?therapist for?better?communication?regarding?this Orders: Orders Basic Metabolic Panel Today N52.9 - Male erectile dysfunction, unspecified, Z00.00 - Encounter for general adult medical examination without abnormal findings Testosterone, Free/Total Today N52.9 - Male erectile dysfunction, unspecified Referrals Nurse Navigator Referral N52.9 - Male erectile dysfunction, unspecified, Z63.0 - Problems in relationship with spouse or partner Patient Instructions: Patient?had?made?appointment?due?to?dysuria?and?recommendation?by?nurse?that?schedule?appointment?with?me. However,?patient?has?already?been?seen?at?urgent?care?and?was?prescribed?an?antibiotic?though?he?does?know?which?antibiotic Symptoms?already?improving Urine?dip?today?shows?1+?leukocytes?but?no?blood?or?nitrites and?urine?is?rather?concentrated. Likely?improving?on?antibiotic?therapy. Increase?hydration
[2024-04-29 13:24] VITALS: BP 110/60; PULSE 80; RESP 14; TEMP 36.3; O2SAT 94; BMI 24.7
--- OUTSIDE RECORDS SUMMARY | 2024-04-29 16:42 | XMS_ITS | Clinical Summary ---
[facility] [address] [place] [address] Care Team Providers Care Alcohol Law Enforcement Agent Name Role Phone Unavailable Primary Care Provider Unavailabl e Social History Tobacco Use Types Packs/Day Years Used Date Smoking Tobacco: Never Assessed Sex and Gender Information Value Date Recorded Sex Assigned at Not on file Gender Identity Not on file Sexual Orientation Not on file Plan of Treatment Health Maintenance Due Date Last Done Comments DTaP,Tdap,and Td Vaccines (1 - Tdap) 1980 Zoster Vaccines (1 of 2) 06/08/2011 Cholesterol Screening (Lipid Panel) 02/27/2022 Colorectal Cancer Screening: Colonoscopy 02/27/2022 Depression Screening 02/27/2022 HIV Screening 02/27/2022 Hepatitis C Screening 02/27/2022 Social Influencers of Health Screening 02/27/2022 COVID-19 Vaccine ( - 2023-2 5 season) 2023 Influenza Vaccine (#1) 2023 RSV Immunization Patients 60 + Years Old (1 - 1-dose 75+ series) 2036 HIB Vaccines Aged Out No longer eligi ble based on patient's age to complete this topic HPV Vaccines Aged Out No longer eligi ble based on patient's age to complete this topic Hepatitis A Vaccines Aged Out No long er eligible based on patient's age to complete this topic Hepatitis B Vaccines Aged Out No long er eligible based on patient's age to complete this topic IPV Vaccines Aged Out No longer eligi ble based on patient's age to complete this topic MMR Vaccines Aged Out No longer eligi ble based on patient's age to complete this topic Meningococcal ACWY Vaccine Aged Out N o longer eligible based on patient's age to complete this topic Pneumococcal Vaccine: Pediat rics (0 to 5 Years) and At-Risk Patients (6 to 64 Years) Aged Out No longer eligible b ased on patient's age to complete this topic RSV Immunization Patients Un kirby 20 months Aged Out No longer eligible b ased on patient's age to complete this topic Varicella Vaccines Aged Out No longer eligible based on patient's age to complete this topic
--- OUTSIDE RECORDS SUMMARY | 2024-04-29 16:42 | XMS_ITS | Continuity of Care Document ---
Author Organization [facility] Address [address] [place] [address] Phone Care Team Providers Care Hot Plate Press Operator Name Role Phone José Miguel Pinto MD Unavailable Unavailable Procedures Procedure Date INITIAL HOSPITAL CARE SUBSEQUENT HOSPITAL CARE Advance Directives Directive Yes / No Effective Date File Name No Information Encounters Encounter Description Practice Location Reason(s) For Visit Diagnoses Date Provider Providers Copied on Encounter [facility], [address], [place], [id number], tel:[phone] Alex Main No Information Millie José Miguel. [address], [place], [id number]. tel:[phone] [facility] [address], [id number], [place] tel:[phone] [facility] IP No Information Millie José Miguel. [address], [place], [address]. tel:[phone] Family History Family Member Type Diagnosis Age At Onset No Information Payers Payer name Insurance type Covered democrat ID Authoriza tion(s) [facility] [id number] Social History Type Description Quantity Date Captured [...]
== END 2024-04-29 16:55 | disposition home or self-care (01) ==
PROVIDERS: PCP Family Medicine; Visit Provider Family Medicine
DX: R30.0 Dysuria (principal); N52.9 Male erectile dysfunction, unspecified; Z63.0 Problems in relationship with spouse or partner

== ENCOUNTER → 2024-04-29 12:52 | Outpatient (BNVA) | payer OTHER, SELFPAY | PROVIDERS: PCP Family Medicine; Visit Provider Family Medicine | DX: R30.0 Dysuria (principal); N52.9 Male erectile dysfunction, unspecified; Z63.0 Problems in relationship with spouse or partner | CPT/HCPCS: 99212 ==

== ENCOUNTER 2024-06-04 09:02 | Outpatient (REF) | payer OTHER, SELFPAY ==
--- OUTSIDE RECORDS SUMMARY | 2024-06-04 09:44 | XMS_ITS | Continuity of Care Document ---
Author Organization [facility] Address [address] [place] [address] Phone Care Team Providers Care Greens Cutter Name Role Phone José Miguel Pinto MD Unavailable Unavailable Procedures Procedure Date INITIAL HOSPITAL CARE SUBSEQUENT HOSPITAL CARE Advance Directives Directive Yes / No Effective Date File Name No Information Encounters Encounter Description Practice Location Reason(s) For Visit Diagnoses Date Provider Providers Copied on Encounter [facility], [address], [place], [id number], tel:[phone] Alex Main No Information Millie José Miguel. [address], [place], [id number]. tel:[phone] [facility] [address] [place], [id number], [place] tel:[phone] [facility] IP No Information Millie José Miguel. [address] [place], [place], [id number]. tel:[phone] Family History Family Member Type Diagnosis Age At Onset No Information Payers Payer name Insurance type Covered libertarian ID Authoriza tion(s) [facility] [id number] Social History Type Description Quantity Date Captured [...]
--- OUTSIDE RECORDS SUMMARY | 2024-06-04 09:44 | XMS_ITS | Clinical Summary ---
Author Organization [facility] it Address [address] [place] [address] Care Team Providers Care Hand Molder And Caster Name Role Phone Unavailable Primary Care Provider Unavailabl e Social History Tobacco Use Types Packs/Day Years Used Date Smoking Tobacco: Never Assessed Sex and Gender Information Value Date Recorded Sex Assigned at Not on file Legal Sex Male 3:04 PM EST Gender Identity Not on file Sexual Orientation Not on file Plan of Treatment Health Maintenance Due Date Last Done Comments DTaP,Tdap,and Td Vaccines (1 - Tdap) 1980 Pneumococcal Vaccine: 50+ Ye ars (1 of 1 - PCV) 06/08/2011 Zoster Vaccines (1 of 2) 06/08/2011 Cholesterol [...] patient's age to complete this topic Meningococcal B Vacine Aged Out No lo nger eligible based on patient's age to complete [...]
[2024-06-04 11:21] LABS: MANUAL DIFF FLAG NO
[2024-06-04 11:31] LABS: Appearance Urine Turbid; Color Urine Yellow; Glucose Urine UA Negative (Negative); Leukocyte Esterase Urine Large (3+) (Negative); Nitrite Urine Negative (Negative); UMIC TRIGGER UA YES; Urine Blood Small (1+) (Negative); Urine Ketones Negative (Negative); Urine Protein 30 (1+) mg/dL (Neg-Trace)
[2024-06-04 11:39] LABS: Bacteria Urine 2+ (None Seen); Hyaline Casts Urine 0-2 /LPF (0-2); Squamous Epithelial Cell Urine 0-2 /HPF (0-2); WBC Urine >50 /HPF (0-5)
[2024-06-04 11:45] LABS: Basophils Percent Auto 0.3 % (0-2); Eosinophils Absolute Auto 0.3 X10*3/uL (0.0-0.4); Hematocrit 46.8 % (42.0-52.0); Hemoglobin 16.1 g/dl (14.0-18.0); Imm Gran Abs Auto 0.04 X10*3/uL (0.00-0.03); Imm Gran Pct Auto 0.5 % (0.0-0.4); Lymphocytes Absolute Auto 2.1 X10*3/uL (1.2-4.9); Lymphocytes Percent Auto 23.8 % (20-40); Mean Corpuscular HGB Conc 34.4 g/dl (31.0-36.0); Mean Corpuscular Hemoglobin 32.1 pg (27.0-33.0); Mean Corpuscular Volume 93.4 fL (80.0-98.0); Mean Platelet Volume 9.2 fL (9.4-12.4); Monocytes Absolute Auto 0.8 X10*3/uL (0.1-1.2); Monocytes Percent Auto 8.9 % (2-11); Neutrophils Absolute Auto 5.5 x10*3/uL (2.0-8.3); Neutrophils Percent Auto 63.5 % (45-73); Platelet Count 260 X10*3/uL (160-400); Red Blood Count 5.01 X10*6/uL (4.60-5.80); Red Cell Distribution Width 13.4 % (11.0-16.0); White Blood Count 8.7 X10*3/uL (4.8-10.8)
[2024-06-04 12:19] LABS: Creatinine Urine 165.58 mg/dL; Microalbum/Creatinine Ratio Ur 141.9 ug/mg cr (<30)
[2024-06-04 12:29] LABS: Prostate Specific Antigen Scr 4.12 ng/mL (<0.05-4.0)
[2024-06-04 12:33] LABS: Alanine Aminotransferase 14 U/L (0-40); Albumin Level 3.7 g/dL (3.5-5.0); Alkaline Phosphatase 69 U/L (39-117); Anion Gap 8 (12-20); Aspartate Amino Transferase 18 U/L (5-37); Bilirubin Total 0.5 mg/dL (0.0-1.0); Blood Urea Nitrogen 18 mg/dL (9-16); Calcium 9.6 mg/dL (8.4-10.2); Carbon Dioxide 26 mmol/L (22-29); Chloride 109 mmol/L (96-108); Cholesterol 172 mg/dL (<200); Estimated Glomerular Filt Rate > 60; Glucose Fasting 94 mg/dL (60-99); HDL Cholesterol 50 mg/dL (>40); LDL Cholesterol Calculated 110 mg/dL (<100); Potassium 4.2 mmol/L (3.3-5.1); Sodium 139 mmol/L (135-145); Total Protein 6.4 g/dL (6.5-8.0); Triglycerides 62 mg/dL (<150)
[2024-06-04 12:49] LABS: TSH reflex Free T4 1.57 uIU/mL (0.32-4.0)
[2024-06-12 16:23] LABS: Testosterone, Free 57.4 pg/mL (35.0-155.0); Testosterone, Total 552 ng/dL (250-1100)
== END 2024-06-04 09:03 | disposition home or self-care (01) ==
LOC: HO.WFDLDS 09:02
PROVIDERS: Visit Provider Family Medicine
DX: Z00.00 Encounter for general adult medical examination without abnormal findings (principal); Z12.5 Encounter for screening for malignant neoplasm of prostate; I10 Essential (primary) hypertension; N52.9 Male erectile dysfunction, unspecified; E78.00 Pure hypercholesterolemia, unspecified; R97.20 Elevated prostate specific antigen [PSA]; R31.9 Hematuria, unspecified; R30.0 Dysuria; I49.9 Cardiac arrhythmia, unspecified; F17.210 Nicotine dependence, cigarettes, uncomplicated; Z71.6 Tobacco abuse counseling
CPT/HCPCS: 36415; 80053; 80061; 81001; 82043; 82570; 84153; 84402; 84403; 84443; 85025; 93005; 96127; 99212; 99396

== ENCOUNTER 2024-06-04 15:57 | Outpatient (AMB) | payer OTHER, SELFPAY ==
--- NOTE | 2024-06-04 16:17 | MHC.PC.OV ---
Vital Signs 06/04/24 16:21 Height 5 ft 9 in Weight 164 lb BMI 24.2 BP 110/60 Blood Pressure Location Rt brachial Position Sitting Respiration 14 Pulse 73 Pulse Source Pulse Oximeter Temp 97.7 F Temp Source Oral Pulse Oximetry (%) 94 Oxygen Delivery Method Room Air Intake Visit Reasons: CPE with f/u labs and health maint Technician [employer] Required: No Allergies bee pollen Allergy (Verified 06/04/24 16:21) Anaphylaxis Tobacco use date assessed: 11/21/23 Dental Screening Dental Screen Date: 06/04/24 Did you have a dental visit in the last 12 months?: No Did you have a dental problem in the last 6 months where you did not have access to dental care?: No Was dental information given to patient?: No HPI CPE with f/u labs and health maint HPI Details 63 y/o male presents for a CPE with f/u labs and health maintenance. Labs drawn 06/04/24. Reviewed labs with pt. Triglycerides 62. TC 172. LDL 110. HDL 50. PSA elevated at 4.12. TSH 1.57. Ongoning hematuria, 2+ urine bacteria seen. HPI Comments History of Present Illness Details Documentation assistance for Gabo Degroot MD, was provided by William Clifton,? Equipment Associate on 06/04/2024 at 4:37 PM EST. I, Dr. Degroot, have read, observed, and verified documentation. ?? [facility] Medical History Nicotine dependence, cigarettes, uncomplicated Femur fracture, left Surgical History History of left hip replacement Social History Housing: Apartment Patient Tobacco Use Status: Current everyday Tobacco user Tobacco use type: Cigarette Cigarette Packs Per Day: 20 Cigarettes Per Day: 12 e-Cigarette/Vaping Use: Never Used Second Hand Smoke Exposure: Yes service: No Current occupational status: employed Current occupation: maintence Current occupational exposures/hazards: Yes Cognitive needs: No Hearing needs: No Vision needs: Yes Questionnaire PHQ-9 Over the last 2 weeks, how often have you been bothered by any of the following problems? 1. Little interest or pleasure in doing things: not at all 2. Feeling down, depressed, or hopeless: not at all 3. Trouble falling or staying asleep, or sleeping too much: several days 4. Feeling tired or having little energy: not at all 5. Poor appetite or overeating: not at all 6. Feeling bad about yourself - or that you are a failure or have let yourself or your family down: not at all 7. Trouble concentrating on things, such as reading the newspaper or watching television: not at all 8. Moving or speaking so slowly that other people could have noticed. Or the opposite - being so fidgety or restless that you have been moving around a lot more than usual: not at all 9. Thoughts that you would be better off or of hurting yourself in some way: not at all Total score: 1 Depression Screening Interpretation: Negative Depression Screening Done: Yes 71855 - PHQ-9 Billing: Yes Source: Developed by Drs. Richard Heredia, Aide Medina, Dorian Limon and colleagues, with an educational ivelisse from [employer] Thrive Questionnaire Date Thrive assessed: 06/04/24 I am a: Patient What is your living situation today?: I have a steady place to live Within the past 12 months, did the food you bought not last and you didn't have the money to get more?: Never true Within the past 12 months, did you worry whether your food would run out before you got money to buy more?: Never true Do you have trouble paying for medicines?: No Do you have trouble getting transportation to medical appointments?: No Do you have trouble paying your heating and electricity bill?: No Do you have trouble taking care of your child, family member or friend?: No Do you have trouble with day-to-day activities such as bathing, preparing meals, shopping, managing finances, etc.?: No Are you currently unemployed and looking for a job?: No Are you interested in more education?: No Please select the resources that you would like help with: None Currently or been in a relationship where the following occur: No concerns reported THRIVE Score: 0 SOPHIA-7 AMB Questionnaire SOPHIA-7 Date SOPHIA - 7 assessed: 06/04/24 Feeling nervous, anxious, or on edge: 0 = Not at all Not being able to stop or control worryin = Not at all Worrying too much about different things: 0 = Not at all Trouble relaxin = Not at all Being so restless that it is hard to sit still: 0 = Not at all Becoming easily annoyed or irritable: 0 = Not at all Feeling afraid as if something awful might happen: 0 = Not at all Total SOPHIA-7 score (0-4 normal; 5-9 mild; 10-14 moderate; 15-21 severe): 0 Source: Developed by Drs. Richard Heredia, Aide Medina, Dorian Limon and colleagues, with an educational ivelisse from [employer] SOPHIA-7 Assessment Billing SOPHIA-7 Assessment Tool: SOPHIA-7 Assessment 82918 Review of Systems Const Denies chills, Denies fatigue, Denies fever(s), Denies headache(s) and Denies weakness Eyes Denies change in vision ENT Denies dizziness and Denies headache(s) Card Denies chest pain, Denies lightheadedness, Denies dyspnea and Denies other (Palpitations) Resp Denies cough, Denies dyspnea, Denies wheezing and Denies other ( shortness of breath) GI Denies abdominal pain, Denies melena, Denies hematochezia, Denies change in bowel habits, Denies dyspepsia and Denies nausea Denies hematuria and Denies dysuria Musc Denies numbness and Denies tingling Skin/Breast Denies rash, Denies unusual bruising and Denies wounds Neuro Denies dizziness, Denies headache(s), Denies numbness, Denies Sensory deficit (Neuro), Denies tingling, Denies paresthesias and Denies weakness Psych Denies anxiety and Denies depression Endo Denies fatigue Juni/Lymph Denies easy bleeding and Denies easy bruising Aller/Immun Denies wheezing Physical exam (Primary Care) Vital Signs: Last Vital Signs Temp 97.7 F 06/04/24 16:21 Pulse 73 06/04/24 16:21 Resp 14 06/04/24 16:21 BP 110/60 06/04/24 16:21 Pulse Ox 94 06/04/24 16:21 Oxygen Delivery Method Room Air 06/04/24 16:21 BMI result Body Mass Index 24.2 Tobacco/Smoking Status: Tobacco use Status Tobacco use date assessed 11/21/23 06/04/24 16:23 Patient Tobacco Use Status Current everyday Tobacco 06/04/24 16:23 Tobacco use type Cigarette 06/04/24 16:23 e-Cigarette/Vaping Use Never Used 06/04/24 16:23 PHQ-9: PHQ-9 Score PHQ-9: Total score 1 06/04/24 16:23 Depression Screening Interpretation: Negative Thrive Assessment: Date of Thrive Assessment Date Thrive assessed 06/04/24 06/04/24 16:23 Currently or been in a relationship where the following occur: No concerns reported Const General: no acute distress and well developed Nutritional Appearance: well nourished Orientation/consciousness: patient oriented x3 HENMT Head: Yes normocephalic and Yes atraumatic Ears: hearing grossly normal bilaterally and TM's normal bilaterally General nose exam: Normal external nose present and Normal nares present Mouth: Normal oral and palatal mucosa present and moist mucous membranes Teeth and gingiva: dentition normal Throat: Yes posterior oropharynx normal Eyes General: appearance normal, both eyes and all related structures Pupils: Equal, round and reactive pupils present EOM: EOMs intact bilaterally Neck Neck: Yes normal visual inspection, Yes no lymphadenopathy and Yes trachea midline Thyroid: Thyroid normal Carotids: no bruits Lymphatic: no lymphadenopathy noted Chest Chest palpation & inspection: normal inspection of the chest Resp Effort & Inspection: normal respiratory effort Auscultation: clear to auscultation bilaterally Cardio Rate: regular rate Rhythm: abnormal rhythm Heart sounds: S1 normal heart sound present, S2 normal heart sound present, no gallops, no murmurs and no rubs Bruits: no abdominal aortic bruits and no carotid bruits GI Palpation (GI): No Abdominal aortic bruit present, Soft to palpation, nontender, No hepatosplenomegaly present and No Rebound tenderness present Auscultation: normal bowel sounds General: Yes no CVA tenderness Back/Spine/Pelvis Back: no CVA tenderness Cervical Spine: cervical ROM normal and No Cervical spine tenderness Thoracic/Lumbar Spine: thoraco-lumbar ROM normal, No pain with thoraco-lumbar ROM, No thoracic spinal tenderness and No lumbar spinal tenderness Skin Lesions: no lesions Rashes: no rashes Trauma: no lacerations or abrasions Wounds: no wounds Nails: normal Neuro General: patient oriented x3 and gait normal Cranial nerves: Yes Equal, round and reactive pupils present Cognition (Neuro): normal cognition Gait exam (Neuro): Normal gait present Motor exam (neuro): 5/5 motor strength present throughout Sensory Exam: No Sensory deficit (Neuro) Deep tendon reflexes (DTR's): Right patellar reflex intensity grade: 2+ and Left patellar reflex intensity grade: 2+ Extrem General: Yes normal to inspection and No edema Psych Appearance: grossly normal Affect: normal affect Attitude: cooperative Thought process: Normal thought process present Coding Level of Care Code Est Pt Level 3 (37990) Est Pt Prev Care 40-64y(93824) Diagnoses Adult general medical exam Z00.00 Hypercholesterolemia E78.00 Elevated PSA R97.20 Screening for colon cancer Z12.11 Hematuria R31.9 Dysuria R30.0 Nicotine dependence, cigarettes, uncomplicated F17.210 Abnormal heart rhythm I49.9 Additional Codes SOPHIA-7 Assessment Billing - SOPHIA-7 Assessment Tool: SOPHIA-7 Assessment 21217 ([id number]) PHQ-9 - 47156 - PHQ-9 Billing: Yes ([id number]) Assessment & Plan Assessment & Plan (1) Adult general medical exam: Code(s): Z00.00 - Encounter for general adult medical examination without abnormal findings Category: Medical Plan: 63-year-old?male?presents?for?complete?physical?exam (2) Hypercholesterolemia: Code(s): E78.00 - Pure hypercholesterolemia, unspecified Category: Medical Plan: Mildly?elevated?LDL?cholesterol Encouraged?diet?lower?in?saturated?fats?and?cholesterol (3) Elevated PSA: Code(s): R97.20 - Elevated prostate specific antigen [PSA] Category: Medical Plan: Recently?treated?cystitis and?urine?shows?possible UTI Will?start?Bactrim (4) Screening for colon cancer: Code(s): Z12.11 - Encounter for screening for malignant neoplasm of colon Category: Medical Plan: Patient?has?never?had?a?colonoscopy Referred?to?Gastroenterology (5) Hematuria: Code(s): R31.9 - Hematuria, unspecified Category: Medical Plan: As?above (6) Dysuria: Code(s): R30.0 - Dysuria Category: Medical Plan: As?above (7) Nicotine dependence, cigarettes, uncomplicated: Code(s): F17.210 - Nicotine dependence, cigarettes, uncomplicated Category: Medical Plan: Patient?is?significantly?weaning?down?his?smoking. Taking?Chantix Has?low-dose?CT scan scheduled Encouraged?ongoing?weaning?and?cessation (8) Abnormal heart rhythm: Code(s): I49.9 - Cardiac arrhythmia, unspecified Category: Medical Plan: Patient?had?an?irregular?rhythm?or?multiple?skipped?beats?during?auscultation. This?prompted?an?EKG?which?showed?normal?sinus?rhythm?with?normal?axis,?minimal?voltage?criteria?for?LVH?which?may?be?a?normal?variant Checking echo Orders: Orders AMB EKG-In Office Today I49.9 - Cardiac arrhythmia, unspecified CA echo transthoracic complete Today R94.31 - Abnormal electrocardiogram [ECG] [EKG] Referrals Gastroenterology Referral Z12.11 - Encounter for screening for malignant neoplasm of colon
[2024-06-04 16:21] VITALS: BP 110/60; PULSE 73; RESP 14; TEMP 36.5; O2SAT 94; BMI 24.2
--- OUTSIDE RECORDS SUMMARY | 2024-06-04 17:20 | XMS_ITS | Continuity of Care Document ---
Author Organization [employer] [facility] Address [address] [place] [address] Phone Care Team Providers Care Refrigeration Brazer/Solderer Name Role Phone José Miguel Pinto MD Unavailable Unavailable Procedures Procedure Date INITIAL HOSPITAL CARE SUBSEQUENT HOSPITAL CARE Advance Directives Directive Yes / No Effective Date File Name No Information Encounters Encounter Description Practice Location Reason(s) For Visit Diagnoses Date Provider Providers Copied on Encounter [facility] [facility], [address], [id number], tel:[phone] Alex Main No Information Millie José Miguel. [address] [place], [id number]. tel:[phone] [facility] [address] [place], [id number], [place] tel:[phone] [facility] IP No Information Millie José Miguel. [address] [place], [address]. tel:[phone] Family History Family Member Type Diagnosis Age At Onset No Information Payers Payer name Insurance type Covered republican ID Authoriza tion(s) [facility] Blue [facility] [id number] Social History Type Description Quantity Date Captured [...]
--- OUTSIDE RECORDS SUMMARY | 2024-06-04 17:20 | XMS_ITS | Clinical Summary ---
Author Organization [facility] it Address [address] [place] [address] Care Team Providers Care Dog Beautician Name Role Phone Unavailable Primary Care Provider [...]
== END 2024-06-04 16:59 | disposition home or self-care (01) ==
PROVIDERS: PCP Family Medicine; Visit Provider Family Medicine
DX: Z00.00 Encounter for general adult medical examination without abnormal findings (principal); E78.00 Pure hypercholesterolemia, unspecified; R97.20 Elevated prostate specific antigen [PSA]; Z12.11 Encounter for screening for malignant neoplasm of colon; R31.9 Hematuria, unspecified; R30.0 Dysuria; F17.210 Nicotine dependence, cigarettes, uncomplicated; I49.9 Cardiac arrhythmia, unspecified

== ENCOUNTER → 2024-06-16 14:58 | Outpatient (REF) | payer OTHER, SELFPAY ==
--- NOTE | 2024-06-16 15:00 | CA_ITS ---
Transthoracic Echocardiogram Patient (Last, First, Middle): Kevin Kennedy, Gender: Male Date of : 1960 Age: 64 Procedure Date: 06/16/2024 Procedure Type: Transthoracic Echocardiogram Location: OP Height: 175.26 cm Weight: 74.39 kg BSA: 1.90 m2 Heart Rate: bpm BP: 110 / 60 mmHg Form Tamper Operator: KANG Referring MD: Gabo Degroot MD Healthcare Technician: Carmelo Gamez MD Symptoms: R94.31 - Abnormal electrocardiogram [ECG] [EKG] Study Quality: Fair, contrast ECG Rhythm: Frequent ventricular premature beats Conclusions: - 1. Mildly reduced LV ejection fraction 45-50% with grade 1 diastolic dysfunction 2. Cardiac valvular Dopplers within normal limits 3. No gross pericardial effusion Findings Procedure Information Contrast agent, definity, is being given per protocol without apparent complications. The study quality is limited by patients body habitus. Left Ventricle Normal left ventricular cavity size. There is normal left ventricular wall thickness. The left ventricular systolic function is mildly decreased. The visually estimated ejection fraction is between 45-50%. Spectral Doppler is indicative of an impaired relaxation filling pattern. E/E prime ratio is <8, consistent with normal filling pressures. Evidence suggests grade I (mild) diastolic dysfunction. Right Ventricle Normal right ventricular cavity size and systolic function. Atria The left atrium is normal in size. There is lipomatous hypertrophy of the interatrial septum. There is no evidence of interatrial shunt. The right atrium is normal in size. Aortic Valve Normal aortic valve structure and function. There is no aortic valve stenosis. There is no aortic valve regurgitation. Mitral Valve Likely normal mitral valve structure and function. There is trace mitral valve regurgitation. There is no mitral valve stenosis. Pulmonic Valve The pulmonic valve was not well visualized. Tricuspid Valve Likely normal tricuspid valve structure and function. The right ventricular systolic pressure is not calculated. Mildly elevated right atrial pressure. Great Vessels All visible segments of the aorta are normal in size. The aorta was not well visualized. The pulmonary artery was not well visualized. Venous The inferior vena cava is mildly dilated and collapses less than 50% with inspiration. Pericardium/Pleural There is no evidence of pericardial effusion. Prior Study Comparison No prior study available for comparison. Measurements 2D Linear Measurements IVSd: 0.78 0.6-0.9/0.6-1.0 cm LVIDd: 4.94 3.9-5.3/4.2-5.9 cm LVIDd Index: 2.60 2.4-3.2/2.2-3.1 cm/m2 LVIDs: 3.91 2.0-3.6 cm LVPWd: 0.66 0.7-1.1 cm LA Diam: 2.90 2.7-3.8/3.0-4.0 cm LAIDs Index: 1.53 1.5-2.3 cm/m2 LV Mass: 144.96 67-162/88-224 g LV Mass Index: 76.29 43-95/49-115 g/m2 LVOT Diam: 2.40 3.0+(-)1.3 cm 2D Systolic Function EF 4C: 48.50 >55% EF 2C: 47.40 >55% EF BiP: 47.70 >55% Mitral Valve MV Pk E: 0.51 MV PK A: 0.80 MV Decel Time: 154.00 E/A: 0.60 E'Lateral: 8.81 E'Medial: 6.42 E/E' Med: 7.90 E/E' Lat: 5.80 PHT: 45.00 MVA PHT: 4.89 Decel [place]: 3.30 Aortic Valve AoV Pk Tay: 1.15 AoV Mn Tay: 0.84 AoV VTI: 0.23 AoV Pk Grad: 5.00 Aov Mn Grad: 3.00 DARI Cont.VTI: 3.06 LVOT LVOT Pk Tay: 0.78 LVOT Mn Tay: 0.58 LVOT VTI: 0.16 LVOT Pk Grad: 2.00 LVOT Mn Grad: 1.00 LVOT Diam: 2.40 LVOT Area: 4.52 Diastolic Function MV Pk E: 0.51 MV Pk A: 0.80 E/A: 0.60 E'Medial: 6.42 E/E' Med: 7.90 E' Laterial: 8.81 E/E' Lat: 5.80 Tricuspid Valve RA Press: 8.00 Great Vessels Aorta Sinus of Valsalva: 3.68 2.0-3.[address] [place]: 2.55 1.7-3.4 cm Updated in Other Vendor System with Status of Final Carmelo Gamez MD electronically signed on 06/17/2024 12:09:12 PM with status of Final
--- OUTSIDE RECORDS SUMMARY | 2024-06-16 17:07 | XMS_ITS | Continuity of Care Document ---
Author Organization [facility] Address [address] [place] [address] Phone Care Team Providers Care Top Flavor Attendant Name Role Phone José Miguel Pinto MD Unavailable Unavailable Procedures Procedure Date INITIAL HOSPITAL CARE SUBSEQUENT HOSPITAL CARE Advance Directives Directive Yes / No Effective Date File Name No Information Encounters Encounter Description Practice Location Reason(s) For Visit Diagnoses Date Provider Providers Copied on Encounter [facility], [address], [id number], tel:[phone] Alex Main No Information [place] José Miguel. [address] [place], [place], [id number]. tel:[phone] [facility] [address], [address], [place] tel:[phone] [facility] IP No Information Millie José Miguel. [address], [place], [address]. tel:[phone] Family History Family Member Type Diagnosis Age At Onset No Information Payers Payer name Insurance type Covered libertarian ID Authoriza tion(s) [facility] Blue [facility] [id number] Social History Type Description Quantity Date Captured [...]
--- OUTSIDE RECORDS SUMMARY | 2024-06-16 17:07 | XMS_ITS | Clinical Summary ---
Author Organization [facility] it Address [address] [place] [address] Care Team Providers Care Mathematics Improvement Teacher Name Role Phone Unavailable Primary Care Provider [...]
== END ==
LOC: HO.CARD 14:58
PROVIDERS: PCP Family Medicine; Visit Provider Family Medicine
DX: R94.31 Abnormal electrocardiogram [ECG] [EKG] (principal)
CPT/HCPCS: 93306; Q9957

== ENCOUNTER → 2024-06-16 15:00 | Outpatient (BNV) | payer OTHER, SELFPAY | PROVIDERS: PCP Family Medicine; Visit Provider Internal Medicine Cardiovascular Disease | DX: I42.8 Other cardiomyopathies (principal); R94.31 Abnormal electrocardiogram [ECG] [EKG] | CPT/HCPCS: 93306 ==

== ENCOUNTER 2024-06-18 09:30 | Outpatient (AMB) | payer OTHER, SELFPAY ==
--- NOTE | 2024-06-18 07:40 | A.OFFVIS_ITS ---
Intake Visit Reasons: Current Smoker Allergies bee pollen Allergy (Verified 06/04/24 16:21) Anaphylaxis HPI HPI Current Smoker: Details: Initial visit for this 64yo smoker with a 45+PYH. Patient started smoking at age 12 for 52 years at 1-1.5ppd. Now down to <1/2ppd. . Denies marijuana use. Denies second hand smoke exposure. Reports exposure to asbestos and diesel fumes. . Denies known family history of lung cancer. Denies personal history of cancers. Denies chest CT in last year. . Denies recent travel outside the [place]. Denies recent respiratory illness or recent hospitalization for respiratory issues. Denies testing positive for COVID. Admits receiving COVID Vaccine. . Denies fever, chills, new/worsening cough, hemoptysis, hoarseness or dysphagia. Denies significant chest pain, significant dyspnea or unintentional weight loss. Patient Lung Cancer Screening Questionnaire reviewed with patient by provider. . Shared Decision Making Completed. Patient meets criteria. Discussed in detail with patient, the risk vs benefit of LDCT screening. Patient consents to proceed with scan. Discussed smoking cessation. [facility] Medical History (Updated 06/18/24 @ 09:49 by Oliva Mills PA-C) History of TIAs Nicotine dependence, cigarettes, uncomplicated Femur fracture, left Surgical History (Updated 06/18/24 @ 09:49 by Oliva Mills PA-C) History of open reduction and internal fixation (ORIF) procedure History of left hip replacement Social History (Updated 06/18/24 @ 09:45 by Oliva Mills PA-C) Housing: Apartment Patient Tobacco Use Status: Current everyday Tobacco user Tobacco use type: Cigarette Cigarettes Per Day: 6 Years Smoked: (onset 12yo, 1-1.5ppd x 52yrs, now <1/2ppd, 45+PYH) e-Cigarette/Vaping Use: Never Used Second Hand Smoke Exposure: Yes service: No Current occupational status: employed Current occupation: maintence Current occupational exposures/hazards: Yes Cognitive needs: No Hearing needs: No Vision needs: Yes Assessment & Plan Assessment & Plan (1) Nicotine dependence, cigarettes, uncomplicated: Comment: (onset 12yo, 1-1.5ppd x 53yrs, now <1/2ppd, 45+PYH) Code(s): F17.210 - Nicotine dependence, cigarettes, uncomplicated Category: Medical Plan: - SDM visit completed today in office. - Patient meets criteria for LDCT for lung cancer screening purposes and is asymptomatic. - Smoking cessation counseling offered. Patients can always call [phone]. - Will arrange for a LDCT scan of the chest for screening purposes at [facility]. - Risks, benefits, and alternatives were discussed in detail and the patient agrees to proceed. - Risks discussed include but are not limited to: radiation exposure, anxiety during testing and while awaiting results, false negatives, false positives and possibility of additional intervention such as further imaging or surgical procedures for benign disease. - Benefits are obviously detection of lung cancer at an early stage which can lead to improved outcomes. - Discussed the importance of screening program compliance with adherence to yearly LDCT scan as scheduled - or sooner interval scans for personalized scr eening regimen. - Discussed follow up plan. Our office will send a letter discussing results and if needed set up phone call and office visit based on CT findings. - Patient educated on results categorization and the management decisions for suspicious findings potentially found on the screening LDCT scan. Any patient with a Lung RADS score of 3 or 4 will be reviewed by a multidisciplinary team at [facility] to form a plan of action in regards to scan findings. - If further work up is warranted for a suspicious lung finding this will be followed by the Lung Cancer Screening program in conjunction with the Thoracic Surgery Department at [facility]. - A copy of the office note and LDCT will be sent to the patient's PCP - as well as documentation on any associated further plans of care. - Incidental findings on LDCT are the PCP's responsibility. These findings are indicated with an S finding on the LDCT Assessment. A note discussing the findings will be sent to the PCP who is then responsible for further management. - All questions answered.? Coding Level of Care Code Lung Cancer Screening G0296 Diagnoses Nicotine dependence, cigarettes, uncomplicated F17.210
--- OUTSIDE RECORDS SUMMARY | 2024-06-18 10:53 | XMS_ITS | Continuity of Care Document ---
Author Organization [employer] [facility] Address [address] [place] [address] Phone Care Team Providers Care Orthodontist Name Role Phone José Miguel Pinto MD Unavailable Unavailable Procedures Procedure Date INITIAL HOSPITAL CARE SUBSEQUENT HOSPITAL CARE Advance Directives Directive Yes / No Effective Date File Name No Information Encounters Encounter Description Practice Location Reason(s) For Visit Diagnoses Date Provider Providers Copied on Encounter [facility], [address] [place], [place], [id number], tel:[phone] Alex Main No Information [place] José Miguel. [address], [place], [id number]. tel:[phone] [facility] [address] [place], [place], [address], [place] tel:[phone] [facility] IP No Information Millie José Miguel. [address], [address]. tel:[phone] Family History Family Member Type Diagnosis Age At Onset No Information Payers Payer name Insurance type Covered alliance party ID Authoriza tion(s) [facility] [id number] Social History Type Description Quantity Date Captured [...]
--- OUTSIDE RECORDS SUMMARY | 2024-06-18 10:53 | XMS_ITS | Clinical Summary ---
Author Organization [facility] it Address [address] [place] [address] Care Team Providers Care Office Mover Name Role Phone Unavailable Primary Care Provider [...]
== END 2024-06-18 10:00 | disposition home or self-care (01) ==
LOC: HO.HPS 09:31
PROVIDERS: PCP Family Medicine; Referring Provider Family Medicine; Visit Provider Physician Assistant Medical
DX: F17.210 Nicotine dependence, cigarettes, uncomplicated (principal)
CPT/HCPCS: G0296

== ENCOUNTER 2024-06-18 09:52 | Outpatient (REF) | payer OTHER, SELFPAY ==
--- NOTE | ~2024-06-18 | CT_ITS ---
CLINICAL HISTORY: F17.210 - Nicotine dependence, cigarettes, uncomplicated CT lung cancer screening (LDCT) Comparison: None Technique: Axial CT images of the chest using low-dose technique. Referring provider counseled the patient on shared decision-making for LDCT screening. Additional counseling was provided on smoking cessation. Effective radiation dose total: DLP 41 mGycm, CTDIvol 1.2 mGy. Findings: Lung: Trachea and central bronchi are patent. Apical centrilobular emphysema without dense consolidation, pleural effusion or pneumothorax. Coronary artery calcifications: None appreciated. Mediastinal structures are unremarkable. No chest wall lesions, axillary adenopathy or thyroid nodules. Limited upper abdomen: Unremarkable Other: No acute osseous findings Impression: Apical predominant emphysema without suspicious pulmonary nodule or mass. Lung rads category 1 Category 1: Normal; continue annual screening Category 2: Benign appearance or behavior, continue annual screening Category 3: Probably benign, [address] recommended Category 4A: Suspicious, [address] recommended; may consider PET/CT Category 4B: Suspicious, Additional diagnostics and/or tissue sampling recommended Category 4X: Suspicious, Additional diagnostics and/or tissue sampling recommended Category 0: Recalls (incomplete screen due to Incomplete coverage, Noise, Respiratory motion, Expiration, Obscured by acute abnormality) This document has been electronically signed by: Lashell Story MD on 06/19/2024 08:50:56
--- OUTSIDE RECORDS SUMMARY | 2024-06-18 11:29 | XMS_ITS | Continuity of Care Document ---
Author Organization [facility] Address [address] [place] [address] Phone Care Team Providers Care Dog Or Horse Racing Official Name Role Phone José Miguel Pinto MD Unavailable Unavailable Procedures Procedure Date INITIAL HOSPITAL CARE SUBSEQUENT HOSPITAL CARE Advance Directives Directive Yes / No Effective Date File Name No Information Encounters Encounter Description Practice Location Reason(s) For Visit Diagnoses Date Provider Providers Copied on Encounter [facility], [address], [place], [id number], tel:[phone] Alex Main No Information [place] José Miguel. [address], [place], [id number]. tel:[phone] [facility] [address], [id number], [place] tel:[phone] [facility] IP No Information Millie José Miguel. [address], [place], [address]. tel:[phone] Family History Family Member Type Diagnosis Age At Onset No Information Payers Payer name Insurance type Covered libertarian ID Authoriza tion(s) [facility] Blue [facility] [id number] Social History Type Description Quantity Date Captured [...]
--- OUTSIDE RECORDS SUMMARY | 2024-06-18 11:29 | XMS_ITS | Clinical Summary ---
Author Organization [facility] it Address [address] [place] [address] Care Team Providers Care Wharf Labourer Name Role Phone Unavailable Primary Care Provider [...]
== END 2024-06-18 09:53 | disposition home or self-care (01) ==
LOC: HO.CT 09:52
PROVIDERS: PCP Family Medicine; Visit Provider Physician Assistant Medical
DX: Z12.2 Encounter for screening for malignant neoplasm of respiratory organs (principal); F17.210 Nicotine dependence, cigarettes, uncomplicated
CPT/HCPCS: 71271; G0296

== ENCOUNTER → 2024-06-18 09:55 | Outpatient (BNV) | payer OTHER, SELFPAY | PROVIDERS: PCP Family Medicine; Visit Provider Radiology Diagnostic Radiology | DX: F17.210 Nicotine dependence, cigarettes, uncomplicated (principal) | CPT/HCPCS: 71271 ==

== ENCOUNTER 2024-08-09 14:34 | Outpatient (AMB) | payer OTHER, SELFPAY ==
--- NOTE | 2024-08-09 14:42 | MHC.PC.OV ---
Vital Signs 08/09/24 14:45 Height 5 ft 9 in Weight 164 lb BMI 24.2 BP 100/60 Blood Pressure Location Rt brachial Position Sitting Respiration 16 Pulse 95 Pulse Source Pulse Oximeter Temp 97.9 F Temp Source Oral Pulse Oximetry (%) 96 Oxygen Delivery Method Room Air Intake Visit Reasons: f/u CT scan Intake Note: follow up ct scan Freight Car Builder Required: No Allergies bee pollen Allergy (Verified 08/09/24 14:43) Anaphylaxis Medication List - Last Reconciled 08/09/24 by Gabo Degroot MD epinephrine 0.3 mg IM Q4H PRN epinephrine (EpiPen 2-Juan Pablo) 0.3 mg (0.3 mL) IM Q4H PRN 30 days tamsulosin 0.8 mg (2 x 0.4 mg) PO DAILY 90 days varenicline tartrate 1 mg PO BID 28 days Tobacco use date assessed: 11/21/23 Dental Screening Dental Screen Date: 06/04/24 HPI f/u CT scan HPI Details 64 y/o male presents today to f/u CT scan. Hx of smoking, 1-1.5ppd x [address] lung 06/19/24 shows: Apical predominant emphysema without suspicious pulmonary nodule or mass. Lung rads category 1 PFSH Medical History (Updated 06/18/24 @ 09:49 by Oliva Mills PA-C) History of TIAs Nicotine dependence, cigarettes, uncomplicated Femur fracture, left Surgical History (Updated 06/18/24 @ 09:49 by Oliva Mills PA-C) History of open reduction and internal fixation (ORIF) procedure History of left hip replacement Social History (Updated 06/18/24 @ 09:45 by Oliva Mills PA-C) Housing: Apartment Patient Tobacco Use Status: Current everyday Tobacco user Tobacco use type: Cigarette Cigarettes Per Day: 6 Years Smoked: (onset 12yo, 1-1.5ppd x 53yrs, now <1/2ppd, 45+PYH) e-Cigarette/Vaping Use: Never Used Second Hand Smoke Exposure: Yes service: No Current occupational status: employed Current occupation: maintence Current occupational exposures/hazards: Yes Cognitive needs: No Hearing needs: No Vision needs: Yes Questionnaire Thrive Questionnaire Date Thrive assessed: 04/29/24 I am a: Patient What is your living situation today?: I have a steady place to live Within the past 12 months, did the food you bought not last and you didn't have the money to get more?: Never true Within the past 12 months, did you worry whether your food would run out before you got money to buy more?: Never true Do you have trouble paying for medicines?: No Do you have trouble getting transportation to medical appointments?: No Do you have trouble paying your heating and electricity bill?: No Do you have trouble taking care of your child, family member or friend?: No Do you have trouble with day-to-day activities such as bathing, preparing meals, shopping, managing finances, etc.?: No Are you currently unemployed and looking for a job?: No Are you interested in more education?: No Please select the resources that you would like help with: None Currently or been in a relationship where the following occur: No concerns reported THRIVE Score: 0 SOPHIA-7 AMB Questionnaire SOPHIA-7 Date SOPHIA - 7 assessed: 06/04/24 Source: Developed by Drs. Richard Heredia, Aide Medina, Dorian Limon and colleagues, with an educational ivelisse from [employer]. Review of Systems Const Denies chills, Denies fatigue, Denies fever(s), Denies headache(s) and Denies weakness ENT Denies dizziness and Denies headache(s) Card Denies dyspnea Resp Denies cough, Denies dyspnea, Denies wheezing and Denies other (shortness of breath) Musc Denies numbness and Denies tingling Neuro Denies dizziness, Denies headache(s), Denies numbness, Denies tingling and Denies weakness Psych Denies anxiety and Denies depression Endo Denies fatigue Aller/Immun Denies wheezing Physical exam (Primary Care) Vital Signs: Last Vital Signs Temp 97.9 F 08/09/24 14:45 Pulse 95 08/09/24 14:45 Resp 16 08/09/24 14:45 BP 100/60 08/09/24 14:45 Pulse Ox 96 08/09/24 14:45 Oxygen Delivery Method Room Air 08/09/24 14:45 BMI result Body Mass Index 24.2 Tobacco/Smoking Status: Tobacco use Status Tobacco use date assessed 11/21/23 08/09/24 14:49 Patient Tobacco Use Status Current everyday Tobacco 08/09/24 14:49 Tobacco use type Cigarette 08/09/24 14:49 e-Cigarette/Vaping Use Never Used 08/09/24 14:49 Thrive Assessment: Date of Thrive Assessment Date Thrive assessed 04/29/24 08/09/24 14:49 Currently or been in a relationship where the following occur: No concerns reported Const General: well developed; No acute distress Nutritional Appearance: well nourished Orientation/consciousness: patient oriented x3 HENMT Head: Yes normocephalic and Yes atraumatic Eyes General: appearance normal, both eyes and all related structures Pupils: Equal, round and reactive pupils present EOM: EOMs intact bilaterally Resp Effort & Inspection: normal respiratory effort Auscultation: clear to auscultation bilaterally Cardio Rate: regular rate Rhythm: regular rhythm Heart sounds: S1 normal heart sound present, S2 normal heart sound present, no gallops, no murmurs and no rubs Neuro General: patient oriented x3 and gait normal Cranial nerves: Yes Equal, round and reactive pupils present Psych Affect: normal affect Coding Level of Care Code Est Pt Level 3 (36984) Diagnoses Nicotine dependence, cigarettes, uncomplicated F17.210 Assessment & Plan Assessment & Plan (1) Nicotine dependence, cigarettes, uncomplicated: Comment: (onset 12yo, 1-1.5ppd x 52yrs, now <1/2ppd, 45+PYH) Code(s): F17.210 - Nicotine dependence, cigarettes, uncomplicated Category: Medical Plan: Low-dose?CT?scan?showed?no?evidence?of?neoplasm Did?show?early?emphysema Lungs?are?clear?today?but?mildly?distant?breath?sounds?consistent?with?emphysema Patient?is?still?smoking?about?a?half?pack?per?day. He?tried?Chantix?which did?not?help?and?he?had?some?adverse?effects.??Discontinued?Chantix Will?try?bupropion?and?also?can?try?nicotine?lozenges Orders: Orders Lipid Panel Today Z00.00 - Encounter for general adult medical examination without abnormal findings Prostate Specific Antigen Scr Today Z12.5 - Encounter for screening for malignant neoplasm of prostate TSH reflex Free T4 Today Z00.00 - Encounter for general adult medical examination without abnormal findings Comprehensive [place]. Panel Fast Today Z00.00 - Encounter for general adult medical examination without abnormal findings Microalbumin, Random (w Creat) Today I10 - Essential (primary) hypertension UA CC w/rflx Micro + Cult Today Z00.00 - Encounter for general adult medical examination without abnormal findings Medications: New bupropion HCl 75 mg PO BID 90 days 180 tabs 1RF epinephrine (EpiPen 2-Juan Pablo) 0.3 mg (0.3 mL) IM Q4H 30 days PRN 2 ea 2RF anaphylaxis nicotine (polacrilex) (Nicorette) 2 mg buccal Q4-8H 28 days PRN 108 ea 1RF nicotine cravings F17.210 - Nicotine dependence, cigarettes, uncomplicated
--- OUTSIDE RECORDS SUMMARY | 2024-08-09 14:42 | XMS_ITS | Continuity of Care Document ---
Author Organization [facility] Address [address] [place] [address] Phone Care Team Providers Care Instructional Support Specialist Name Role Phone José Miguel Pinto MD Unavailable Unavailable Procedures Procedure Date INITIAL HOSPITAL CARE SUBSEQUENT HOSPITAL CARE Advance Directives Directive Yes / No Effective Date File Name No Information Encounters Encounter Description Practice Location Reason(s) For Visit Diagnoses Date Provider Providers Copied on Encounter [facility], [address], [place], [id number], tel:[phone] Alex Main No Information Millie José Miguel. [address], [place], [address]. tel:[phone] INITIAL HOSPITAL CARE [facility], [address], [place], [address], [place] tel:[phone] [facility] IP No Information Millie José Miguel. [address], [place], [address]. tel:[phone] Family History Family Member Type Diagnosis Age At Onset No Information Payers Payer name Insurance type Covered green party ID Authoriza tion(s) [facility] Blue [facility] [id number] Social History Type Description Quantity Date Captured [...]
--- OUTSIDE RECORDS SUMMARY | 2024-08-09 14:42 | XMS_ITS | Clinical Summary ---
Author Organization [facility] it Address [address] [place] [address] Care Team Providers Care Wall Crane Operator Name Role Phone Unavailable Primary Care Provider [...] - 2023-2 5 season) 2023 Influenza Vaccine (Season Ended) 2024 RSV Immunization Adult Patie nts (1 - 1-dose 75+ series) 2036 HIB [...] age to complete this topic Meningococcal B Vaccine Aged Out No l onger eligible based on patient's age to complete [...]
[2024-08-09 14:45] VITALS: BP 100/60; PULSE 95; RESP 16; TEMP 36.6; O2SAT 96; BMI 24.2
== END 2024-08-09 15:13 | disposition home or self-care (01) ==
LOC: HO.HMCFM 14:35
PROVIDERS: PCP Family Medicine; Visit Provider Family Medicine
DX: F17.210 Nicotine dependence, cigarettes, uncomplicated (principal)

== ENCOUNTER → 2024-08-09 14:34 | Outpatient (BNVA) | payer OTHER, SELFPAY | PROVIDERS: PCP Family Medicine; Visit Provider Family Medicine | DX: F17.210 Nicotine dependence, cigarettes, uncomplicated (principal) | CPT/HCPCS: 99212 ==

== ENCOUNTER 2024-08-31 15:42 | Outpatient (AMB) | payer OTHER, SELFPAY ==
--- NOTE | 2024-08-31 15:50 | MHC.PC.OV ---
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 Allergies bee pollen Allergy (Verified 08/31/24 15:54) Anaphylaxis Medication List - Last Reconciled 08/31/24 by Gabo Degroot MD bupropion HCl 75 mg PO BID 90 days epinephrine 0.3 mg IM Q4H PRN epinephrine (EpiPen 2-Juan Pablo) 0.3 mg (0.3 mL) IM Q4H PRN 30 days nicotine (polacrilex) (Nicorette) 2 mg buccal Q4-8H PRN 28 days tamsulosin 0.8 mg (2 x 0.4 mg) PO DAILY 90 days varenicline tartrate 1 mg PO BID 28 days Tobacco use date assessed: 11/21/23 Dental Screening Dental Screen Date: 06/04/24 HPI Rash on feet, possibly reaction to bupropion HPI Details 64 y/o male presents today with complaints of a rash on feet. He questions whether or not rash could be due to possible reaction to bupropion. Has trialed cortisone cream with no relief. Also notes some rash on hands and shins. [facility] Medical History (Updated 08/31/24 @ 16:07 by William Clifton) History of TIAs Nicotine dependence, cigarettes, uncomplicated Femur fracture, left Surgical History (Updated 06/18/24 @ 09:49 by Oliva Mills PA-C) History of open reduction and internal fixation (ORIF) procedure History of left hip replacement Social History (Updated 06/18/24 @ 09:45 by Oliva Mills PA-C) Housing: Apartment Patient Tobacco Use Status: Current everyday Tobacco user Tobacco use type: Cigarette Cigarettes Per Day: 6 Years Smoked: (onset 12yo, 1-1.5ppd x 52yrs, now <1/2ppd, 45+PYH) e-Cigarette/Vaping Use: Never Used Second Hand Smoke Exposure: Yes service: No Current occupational status: employed Current occupation: maintence Current occupational exposures/hazards: Yes Cognitive needs: No Hearing needs: No Vision needs: Yes Questionnaire Thrive Questionnaire Date Thrive assessed: 04/29/24 I am a: Patient What is your living situation today?: I have a steady place to live Within the past 12 months, did the food you bought not last and you didn't have the money to get more?: Never true Within the past 12 months, did you worry whether your food would run out before you got money to buy more?: Never true Do you have trouble paying for medicines?: No Do you have trouble getting transportation to medical appointments?: No Do you have trouble paying your heating and electricity bill?: No Do you have trouble taking care of your child, family member or friend?: No Do you have trouble with day-to-day activities such as bathing, preparing meals, shopping, managing finances, etc.?: No Are you currently unemployed and looking for a job?: No Are you interested in more education?: No Please select the resources that you would like help with: None Currently or been in a relationship where the following occur: No concerns reported THRIVE Score: 0 SOPHIA-7 AMB Questionnaire SOPHIA-7 Date SOPHIA - 7 assessed: 06/04/24 Source: Developed by Drs. Richard Heredia, Aide Medina, Dorian Limon and colleagues, with an educational ivelisse from [employer]. Review of Systems Const Denies chills, Denies fatigue, Denies fever(s), Denies headache(s) and Denies weakness ENT Denies dizziness and Denies headache(s) Card Denies dyspnea Resp Denies cough, Denies dyspnea, Denies wheezing and Denies other (shortness of breath) Musc Denies numbness and Denies tingling Neuro Denies dizziness, Denies headache(s), Denies numbness, Denies tingling and Denies weakness Psych Denies anxiety and Denies depression Endo Denies fatigue Aller/Immun Denies wheezing Physical exam (Primary Care) Vital Signs: Last Vital Signs Temp 98.2 F 08/31/24 15:55 Pulse 108 H 08/31/24 15:55 Resp 14 08/31/24 15:55 BP 110/70 08/31/24 15:55 Pulse Ox 98 08/31/24 15:55 Oxygen Delivery Method Room Air 08/31/24 15:55 BMI result Body Mass Index 24.4 Tobacco/Smoking Status: Tobacco use Status Tobacco use date assessed 11/21/23 08/31/24 15:52 Patient Tobacco Use Status Current everyday Tobacco 08/31/24 15:52 Tobacco use type Cigarette 08/31/24 15:52 e-Cigarette/Vaping Use Never Used 08/31/24 15:52 Thrive Assessment: Date of Thrive Assessment Date Thrive assessed 04/29/24 08/31/24 15:52 Currently or been in a relationship where the following occur: No concerns reported Const General: well developed; No acute distress Nutritional Appearance: well nourished Orientation/consciousness: patient oriented x3 HENMT Head: Yes normocephalic and Yes atraumatic Eyes General: appearance normal, both eyes and all related structures Pupils: Equal, round and reactive pupils present EOM: EOMs intact bilaterally Resp Effort & Inspection: normal respiratory effort Neuro General: patient oriented x3 and gait normal Cranial nerves: Yes Equal, round and reactive pupils present Psych Affect: normal affect Coding Level of Care Code Est Pt Level 3 (98992) Diagnoses Rash R21 Nicotine dependence, cigarettes, uncomplicated F17.210 Assessment & Plan Assessment & Plan (1) Rash: Code(s): R21 - Rash and other nonspecific skin eruption Category: Medical Plan: Rash?on?feet?but?also?some?on?hands?and?shins May?be?an?allergic?reaction?to?bupropion.??He?as?discontinued?medication. Advised?Benadryl.??Will?give?him?a?stronger?steroid?cream Can?also?use?Zyrtec?in?the?daytime Cool?showers?and?loose?fitting?clothing Call?or?return?to?office?if?worsening?or?not?improving (2) Nicotine dependence, cigarettes, uncomplicated: Comment: (onset 12yo, 1-1.5ppd x 52yrs, now <1/2ppd, 45+PYH) Code(s): F17.210 - Nicotine dependence, cigarettes, uncomplicated Category: Medical Plan: Patient?was?taking?bupropion?but?this?appears?to?have?caused?an?allergic?reaction He?is?discontinuing?the?medication Encouraged?weaning?and?cessation Medications: New clotrimazole-betamethasone 1-0.05 % 1 appl topical BID 2 weeks 45 grams 0RF cetirizine 10 mg PO DAILY 30 days PRN 30 tabs 0RF allergy symptoms
[2024-08-31 15:55] VITALS: BP 110/70; PULSE 108; RESP 14; TEMP 36.8; O2SAT 98; BMI 24.4
--- OUTSIDE RECORDS SUMMARY | 2024-08-31 17:01 | XMS_ITS | Clinical Summary ---
Author Organization [facility] it Address [address] [place] [address] Care Team Providers Care Credit Administrator Name Role Phone Unavailable Primary Care Provider [...]
== END 2024-08-31 17:01 | disposition home or self-care (01) ==
LOC: HO.HMCFM 15:43
PROVIDERS: PCP Family Medicine; Visit Provider Family Medicine
DX: R21 Rash and other nonspecific skin eruption (principal); F17.210 Nicotine dependence, cigarettes, uncomplicated

== ENCOUNTER → 2024-08-31 15:42 | Outpatient (BNVA) | payer OTHER, SELFPAY | PROVIDERS: PCP Family Medicine; Visit Provider Family Medicine | DX: F17.210 Nicotine dependence, cigarettes, uncomplicated (principal); R21 Rash and other nonspecific skin eruption; Z71.6 Tobacco abuse counseling | CPT/HCPCS: 99212 ==

== ENCOUNTER 2024-09-23 08:47 | Outpatient (REF) | payer OTHER, SELFPAY ==
--- OUTSIDE RECORDS SUMMARY | 2024-09-23 10:19 | XMS_ITS | Clinical Summary ---
Author Organization [facility] it Address [address] [place] [address] Care Team Providers Care Laboratory Technician Name Role Phone Unavailable Primary Care Provider [...]
[2024-09-23 17:03] LABS: Urine Cytology See Pathology rpt
== END 2024-09-23 08:48 | disposition home or self-care (01) ==
LOC: HO.LNP 08:47
PROVIDERS: PCP Family Medicine; Visit Provider Nurse Practitioner Family
DX: R33.9 Retention of urine, unspecified (principal); R33.8 Other retention of urine; R31.29 Other microscopic hematuria; N32.3 Diverticulum of bladder; R97.20 Elevated prostate specific antigen [PSA]; Z87.898 Personal history of other specified conditions
CPT/HCPCS: 51798; 81003; 88112; 99212

== ENCOUNTER 2024-09-23 08:47 | Outpatient (AMB) | payer OTHER, SELFPAY ==
--- NOTE | 2024-09-23 08:52 | A.OFFVIS_ITS ---
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 Degroot. Has a past medical history of left femur fracture in 2021. He presents to the office today for follow-up of his incomplete bladder emptying/urinary retention, and microscopic hematuria in the setting of nicotine dependence. During last office visit patient underwent an office cystoscopy with Dr. Clark for his history of microscopic hematuria in the setting of nicotine dependence. Cystoscopy noted large bladder and small diverticula. Recommendations were made for timed voiding every 4 hours. He had previously followed up with [facility] however lost his insurance. Previous workup has also included CT urogram 03/23 noting There are 2 posterolateral bladder diverticula present measuring just over 3 cm in size bilaterally. Each has a neck of 1 cm or less. No bladder masses are seen. This study in no way excludes bladder neoplasm and cystoscopy/urine cytology plays a role given the negative MRI evaluation of the upper tracts. In office urinalysis results reviewed with the patient today 3+ leukocytes negative nitrates 1+ microscopic hematuria. He does continue to smoke however is limiting how much she is smoking. We did discussed the importance of smoking cessation. PVR 459 mL. He does report compliance with Flomax 0.8 mg daily. We discussed at length incomplete bladder emptying and urinary retention we discussed further treatment options and risks and benefits of these treatment options. In review of patient's chart it appears PSAs are as follows: PSA: 12/22 1.7, 03/23 0.8, 06/22 4.1 He does report noting at times issues with urinary hesitancy and feeling of in complete bladder emptying. He otherwise denies urinary urgency, urinary frequency, incontinence, nocturia, dysuria, foul smelling urine, changes to urinary stream, flank pain, fever, and or chills. JOEL offered however deferred Urine cytologies are as follows: 01/21 & 03/23 Negative for high-grade urothelial carcinoma. [facility] Medical History History of TIAs Nicotine dependence, cigarettes, uncomplicated Femur fracture, left Surgical History History of open reduction and internal fixation (ORIF) procedure History of left hip replacement Social History Housing: Apartment Patient Tobacco Use Status: Current everyday Tobacco user Tobacco use type: Cigarette Cigarettes Per Day: 6 Years Smoked: (onset 12yo, 1-1.5ppd x 52yrs, now <1/2ppd, 45+PYH) e-Cigarette/Vaping Use: Never Used Second Hand Smoke Exposure: Yes service: No Current occupational status: employed Current occupation: maintence Current occupational exposures/hazards: Yes Cognitive needs: No Hearing needs: No Vision needs: Yes Review of Systems Const All systems reviewed & are unremarkable except as noted in HPI and below Physical Exam Const General: cooperative, healthy appearing, comfortable, no acute distress, well developed, alert and awake Orientation/consciousness: patient oriented x3 Limitations: no limitations HEENT Head: Yes normal to inspection, Yes normocephalic and Yes atraumatic Ears: hearing grossly normal bilaterally Eyes General: appearance normal, both eyes and all related structures Neck Neck: Yes normal visual inspection and Yes trachea midline Chest Chest palpation & inspection: normal inspection of the chest Resp Effort & Inspection: normal respiratory effort and able to speak in complete sentences Cardio Rate: regular rate GI Inspection: Yes normal to inspection General: Yes no CVA tenderness Back/Spine/Pelvis Back: no CVA tenderness Skin General skin exam: no rashes or lesions noted Neuro General: patient oriented x3 Extrem General: Yes normal to inspection Psych Appearance: grossly normal and well kempt Mental Status: mental status grossly normal Speech and movement: Normal speech and movement present and Clear speech present Affect: normal affect Attitude: cooperative Thought process: Normal thought process present Thought content: Normal thought content present Insight: Fair insight present (Psych) Judgement: Fair judgement present (Psych) Office Procedures Post Void Residual Post Residual Void Post Void Residual (PVR): 459 [id number] Void Residual by ultrasound Results AMB Urinalysis, Automated UA Leukoctes 500 Christoph/uL Last Edit by Cyril Bond CCM on 09/23/24 09:21 UA Nitrite Last Edit by Cyril Bond [facility] on 09/23/24 09:21 UA Urobilinogen 0.2 mg/dL Last Edit by Cyril Bond [facility] on 09/23/24 09:2 1 UA Protein 100 mg/dL Last Edit by Cyril Bond [facility] on 09/23/24 09:21 UA pH 6.0 Last Edit by Cyril Bond [facility] on 09/23/24 09:21 UA Blood 25 Tony/uL Last Edit by Cyril Bond [facility] on 09/23/24 09:21 UA Specific [place] 1.020 Last Edit by Cyril Bond [facility] on 09/23/24 09: 21 UA Ketone Last Edit by Cyril Bond [facility] on 09/23/24 09:21 UA Bilirubin 0 mg/dL Last Edit by Cyril Bond [facility] on 09/23/24 09:21 UA Glucose 0 mg/dL Last Edit by Cyril Bond [facility] on 09/23/24 09:21 Results Reviewed Results Reviewed: Laboratory Last Values Urine pH (Auto) 6.0 09/23/24 09:20 Specific [place] (Auto) 1.020 09/23/24 09:20 Urine Protein (Auto) 100 mg/dL 09/23/24 09:20 Glucose (UA)(Auto) 0 mg/dL 09/23/24 09:20 Urine Blood (Auto) 25 Tony/uL 09/23/24 09:20 Urine Bilirubin (Auto) 0 mg/dL 09/23/24 09:20 Urine Urobilinogen (Auto) 0.2 mg/dL 09/23/24 09:20 Leukocyte Esterase (Auto) 500 Christoph/uL 09/23/24 09:20 Date of Service: 03/22/24 Procedure(s): CT urogram UROGRAPHIC FINDINGS: Noncontrast imaging through the kidneys ureters and bladder show no urinary tract calculi. After the injection of contrast, there was prompt excretion bilaterally with symmetric CT nephrograms. The right kidney measures 11.6 cm and the left kidney measures 11.2 cm in maximal length. The pelvicalyceal systems show some mild fullness but no hydronephrosis. No mucosal abnormalities are pelvicalyceal filling defects are seen. There is single ureters which follow a normal course to the bladder. There are 2 posterolateral bladder diverticula present measuring just over 3 cm in size bilaterally. Each has a neck of 1 cm or less. No bladder masses are seen. This study in no way excludes bladder neoplasm and cystoscopy/urine cytology plays a role given the negative MRI evaluation of the upper tracts. NON-UROGRAPHIC FINDINGS: Lung Bases: The visualized lung bases are unremarkable. Liver, Gallbladder and Biliary Tree: The liver is enlarged at 18.5 cm in greatest length. Attenuation on noncontrast imaging is greater than the spleen. No focal hepatic lesion or biliary ductal dilatation is present. The gallbladder is unremarkable with no evidence of radiopaque gallstones, gallbladder wall thickening, or obvious pericholecystic inflammatory changes. Pancreas: Unremarkable. Spleen: Unremarkable. Adrenal Glands: Unremarkable. Gastrointestinal Tract: The small and large bowel are unremarkable. The appendix is unremarkable. Abdominal Wall: No significant hernia is appreciated. Lymph Nodes: Normal. Vascular: Unremarkable. Pelvic Viscera: Unremarkable. Osseous Structures: Degenerative changes are present throughout the spine most marked in the lower thoracic region as well as head L5-S1 left total hip prosthesis is present. IMPRESSION: 1. A cause for the patient's gross hematuria has not been found. 2. Incidental note made of 2 bladder diverticula, mild hepatomegaly and degenerative changes in the spine as well as other findings described above. Assessment & Plan Assessment & Plan (1) Incomplete bladder emptying: Code(s): R33.9 - Retention of urine, unspecified Category: Medical (2) Acute urinary retention: Code(s): R33.8 - Other retention of urine Category: Medical (3) Microscopic hematuria: Code(s): R31.29 - Other microscopic hematuria Category: Medical (4) Bladder diverticulum: Code(s): N32.3 - Diverticulum of bladder Category: Medical (5) Elevated PSA: Code(s): R97.20 - Elevated prostate specific antigen [PSA] Category: Medical Plan In office urinalysis results reviewed with the patient today; as noted above; will send for urine cytology. PVR 459 mL. Recent PSA results reviewed with the patient today; as noted above We did discussed potential causes of increase in PSA as well as further treatment options and risks and benefits of these treatment options We discussed at length potential causes of urinary retention/incomplete bladder emptying and further treatment options and risks and benefits of these treatment options. Stop Flomax. Start terazosin as discussed and prescribed. We discussed attempting to double void to assist with incomplete bladder emptying/urinary retention He denies any UTI like symptoms. We discussed the importance of limiting/quitting nicotine dependence for overall health and well-being. Follow-up with nursing in 2 weeks for PVR; nursing to discussed PVR with provider. Will obtain redraw of PSA with no sex the night before, no caffeine morning of, no heavy lifting 1-2 days prior Follow-up with provider in 3 months with PSA and PVR; or sooner with any issues, concerns, and or questions. Orders: Orders Urine Cytology Today Z87.898 - Personal history of other specified conditions PSA,Total (Free>4and<10) Today R97.20 - Elevated prostate specific antigen [PSA] AMB Urinalysis Automated Today Z13.9 - Encounter for screening, unspecified AMB Post Void Residual by ultrasound Today R33.8 - Other retention of urine Medications: New terazosin 5 mg PO BEDTIME 30 caps 3RF 30 days N40.1 - Benign prostatic hyperplasia with lower urinary tract symptoms, R35.0 - Frequency of micturition Discontinued tamsulosin this is an increase in dose Discontinued Reason: Doctor's Order 0.8 mg (2 x 0.4 mg) PO DAILY 90 days 180 caps 1RF Patient Instructions: The patient had an opportunity to ask questions regarding the treatment plan. All questions were answered. Physical exam, labs, and imaging were discussed and reviewed in detail. As well as risks, benefits, and discussion of treatment choices. No major barriers to understanding were identified. The patient expressed understanding and agreement with the above treatment plan. The patient was made aware they should contact our office by phone for worsening of their current condition, the appearance of new symptoms, or with any questions or concerns. Compliance is encouraged with any medications and follow up testing that is ordered. It is a privilege to be allowed the opportunity to participate in? your urological care.? Again, if you have any questions or concerns If you have any questions or concerns please do not hesitate to contact me. The office is [phone]. This note is constructed using voice recognition software. While every effort has been made to ensure accuracy locker attendant errors may have been included. Yours sincerely, CELSA Mccann Coding Level of Care Code Est Pt Level 4 (03115) Complex EM visit Add On G2211 Diagnoses Incomplete bladder emptying R33.9 Acute urinary retention R33.8 Microscopic hematuria R31.29 Bladder diverticulum N32.3 Elevated PSA R97.20 CPT Codes Post Residual Void - PVR CPT Code: 04870-[id number] Void Residual by ultrasound ([id number])
== END 2024-09-23 09:24 | disposition home or self-care (01) ==
LOC: HO.HUSH 08:48
PROVIDERS: PCP Family Medicine; Visit Provider Nurse Practitioner Family
DX: Z13.9 Encounter for screening, unspecified (principal)

== ENCOUNTER 2024-10-05 14:18 | Outpatient (REF) | payer OTHER, SELFPAY ==
--- OUTSIDE RECORDS SUMMARY | 2013-03-08 11:54 | XMS_ITS | Continuity of Care Document ---
Author Organization [facility] Address [address] [place] [address] Phone Care Team Providers Care Control Tower Radio Operator Name Role Phone José Miguel Pinto MD Unavailable Unavailable Procedures Procedure Date INITIAL HOSPITAL CARE SUBSEQUENT HOSPITAL CARE Advance Directives Directive Yes / No Effective Date File Name No Information Encounters Encounter Description Practice Location Reason(s) For Visit Diagnoses Date Provider Providers Copied on Encounter [facility], [address], [place], [id number], tel:[phone] Alex Main No Information Millie José Miguel. [address], [id number]. tel:[phone] [facility] [address], [id number], [place] tel:[phone] [facility] IP No Information Millie José Miguel. [address], [address]. tel:[phone] Family History Family Member Type Diagnosis Age At Onset No Information Payers Payer name Insurance type Covered republican ID Authoriza tion(s) [facility] Blue [facility] [id number] Social History Type Description Quantity Date Captured [...]
--- OUTSIDE RECORDS SUMMARY | 2024-10-05 15:11 | XMS_ITS | Clinical Summary ---
Author Organization [facility] it Address [address] [place] [address] Care Team Providers Care Layer Off Name Role Phone Unavailable Primary Care Provider [...] 2023-2 5 season) 2023 Influenza Vaccine (#1) 2024 RSV Immunization Adult Patie nts (1 [...] 5 Years) and At-Risk Patients (6 to 49 Years) Aged Out No longer eligible b ased on patient's age to complete this topic RSV Immunization Patients Un kirby 20 months Aged Out No longer eligible b ased on patient's age to complete this topic Varicella Vaccines Aged Out No longer eligible based on patient's age to complete this topic
== END 2024-10-05 14:19 | disposition home or self-care (01) ==
LOC: HO.LAB 14:18
PROVIDERS: Visit Provider Nurse Practitioner Family
DX: R33.9 Retention of urine, unspecified (principal); R31.29 Other microscopic hematuria
CPT/HCPCS: 51798; 88112

== ENCOUNTER 2024-11-12 14:15 | Outpatient (AMB) | payer OTHER, SELFPAY ==
--- OUTSIDE RECORDS SUMMARY | 2013-03-08 11:54 | XMS_ITS | Continuity of Care Document ---
Author Organization [facility] Address [address] [place] [address] Phone Care Team Providers Care Auto Radiator Specialist Name Role Phone José Miguel Pinto MD Unavailable Unavailable Procedures Procedure Date INITIAL HOSPITAL CARE SUBSEQUENT HOSPITAL CARE Advance Directives Directive Yes / No Effective Date File Name No Information Encounters Encounter Description Practice Location Reason(s) For Visit Diagnoses Date Provider Providers Copied on Encounter [facility], [address], [place], [id number], tel:[phone] Alex Main No Information Millie José Miguel. [address], [place], [id number]. tel:[phone] INITIAL HOSPITAL CARE [facility], [address], [id number], [place] tel:[phone] [facility] IP No Information Millie José Miguel. [address], [id number]. tel:[phone] Family History Family Member Type Diagnosis Age At Onset No Information Payers Payer name Insurance type Covered green party ID Authoriza tion(s) [facility] [id number] Social History Type Description Quantity Date Captured Comments Sex Male Smoking Status No Information Chief Complaint And Reason For Visit No Information Reason For Referral Reason For Referral No Information History Of Present Illness Encounter Date Complaint History Of Prese nt Illness No Information Functional Status Date Functional Assessmen t No Information Instructions Date Instruction Additional Infor mation No Information Assessments Type Assessment Date No Information Patient Care Teams Name Effective Dates (start - stop) Status Members No Information
[2024-11-12 14:17] VITALS: BP 108/78; PULSE 66; O2SAT 96; BMI 23.0
--- NOTE | 2024-11-12 14:17 | A.OFFVIS_ITS ---
Vital Signs 11/12/24 14:17 Height 5 ft 9 in Weight 156 lb BMI 23.0 BP 108/78 Blood Pressure Location Rt brachial Position Sitting Pulse 66 Pulse Source Pulse Oximeter Pulse Oximetry (%) 96 Oxygen Delivery Method Room Air Intake Visit Reasons: Colonoscopy Screening Intake Note: New pt for initial colo screening. Pt has hx of abn EKG. CC; Pt denies any GI sx or concerns at this time. Business Owner/Engineer Required: No Accompanied by: Self / Same As Patient Allergies bee pollen Allergy (Verified 11/12/24 14:18) Anaphylaxis HPI HPI Colonoscopy Screening: Details: 64 year old? male with past medical history of bladder diverticulum, hypercholesteremia, nicotine dependence is here today for pre colonoscopy screening.? Patient was sent to us by his PCP.? This is his first colonoscopy screening.? Patient denies any gastrointestinal symptoms in the past or at present.? Denies any personal or family history of gastrointestinal disease, colon polyps, or CRC.? Denies history of difficulty with sedation or anesthesia in the past.? Negative for history of sleep apnea.? Denies any history of cardiac, renal, pulmonary, or hepatic disease.?? No history of infectious? diseases like hepatitis A, B, C, HIV or tuberculosis.? Patient is not on any anticoagulation [facility] Medical History History of TIAs Nicotine dependence, cigarettes, uncomplicated Femur fracture, left Surgical History History of open reduction and internal fixation (ORIF) procedure History of left hip replacement Social History Housing: Apartment Patient Tobacco Use Status: Current everyday Tobacco user Tobacco use type: Cigarette Cigarettes Per Day: 6 Years Smoked: (onset 12yo, 1-1.5ppd x 53yrs, now <1/2ppd, 45+PYH) e-Cigarette/Vaping Use: Never Used Second Hand Smoke Exposure: Yes service: No Current occupational status: employed Current occupation: maintence Current occupational exposures/hazards: Yes Cognitive needs: No Hearing needs: No Vision needs: Yes Review of Systems Const Denies weight gain and Denies weight loss ENT Reports no additional complaints, Denies dysphagia and Denies odynophagia Card Reports no additional complaints Resp Reports no additional complaints GI Denies abdominal pain, Denies belching, Denies melena, Denies bloating, Denies change in bowel habits, Denies dysphagia, Denies excessive flatus, Denies dyspepsia, Denies heartburn, Denies diarrhea, Denies loose stools, Denies nausea, Denies odynophagia and Denies vomiting Reports no additional complaints Musc Reports no additional complaints Neuro Reports no additional complaints Psych Reports no additional complaints Endo Reports no additional complaints Physical Exam Vital Signs: Last Vital Signs Pulse 66 11/12/24 14:17 BP 108/78 11/12/24 14:17 Pulse Ox 96 11/12/24 14:17 Oxygen Delivery Method Room Air 11/12/24 14:17 BMI result Body Mass Index 23.0 Const General: healthy appearing, no acute distress and well developed Nutritional Appearance: well nourished Orientation/consciousness: patient oriented x3 Resp Effort & Inspection: normal respiratory effort, able to speak in complete sentences, no tracheal deviation and symmetric chest movement Auscultation: clear to auscultation bilaterally Cardio Rate: regular rate GI Inspection: Yes normal to inspection and No distended Palpation (GI): Soft to palpation, not firm, nontender and No hepatosplenomegaly present Auscultation: normal bowel sounds General: Yes no CVA tenderness Back/Spine/Pelvis Back: no CVA tenderness Skin General skin exam: elasticity normal, turgor normal and dry skin Neuro General: patient oriented x3 Psych Appearance: grossly normal Mental Status: mental status grossly normal Assessment & Plan Assessment & Plan (1) Screening for colon cancer: Code(s): Z12.11 - Encounter for screening for malignant neoplasm of colon Category: Medical Plan Patient denies any GI, cardiac or respiratory symptoms.? Denies any issues with anesthesia in the past.? Denies any history of sleep apnea.? No history infectious diseases in the past or present.? Not on any anticoagulation therapy.? No family or personal history of colon cancer or polyps.? Patient denies melena, hematochezia, unintentional weight loss or ribbon like stools.? Discussed at length the pre-procedure,? prep, diet & medications as well as what to expect prior, during and after the procedure.?? Stressed the importance of good bowel prep.? Recommended the use of Vaseline or Calmoseptine OTC & baby wipes with bowel movements to promote comfort.? ?Patient verbalizes understanding and agrees to plan of care.? He was given the opportunity to ask questions and all questions answered.? We will see him after the procedure.? Medications: New polyethylene glycol 3350 (Miralax) As directed by gastroenterology department at [facility] 238 grams PO ONCE 238 grams 0RF Z12.11 - Encounter for screening for malignant neoplasm of colon bisacodyl (Dulcolax (bisacodyl)) take 4 tabs at noon the day before your colonoscopy 20 mg (4 x 5 mg) PO ONCE 4 tabs 0RF constipation 1 day Z12.11 - Encounter for screening for malignant neoplasm of colon Coding Level of Care Code New Pt Level 3 (05889) Diagnoses Screening for colon cancer Z12.11 Time Spent (min) 40 Comment 30 minutes spent with patient and additional 10 minutes spent reviewing his records
--- OUTSIDE RECORDS SUMMARY | 2024-11-12 14:18 | XMS_ITS | Clinical Summary ---
Author Organization [facility] it Address [address] [place] [address] Care Team Providers Care Steel Chipper Name Role Phone Unavailable Primary Care Provider [...] Panel) 02/27/2022 Colorectal Cancer Screening: Colonoscopy 02/27/2022 HIV Screening 02/27/2022 Hepatitis C Screening 02/27/2022 Social Influencers of Health Screening 02/27/2022 COVID-19 Vaccine (1 - 2023-2 5 season) 2023 Depression Screening 03/31/2024 Influenza Vaccine (#1) 2024 RSV Immunization Adult [...]
== END 2024-11-12 14:55 | disposition home or self-care (01) ==
LOC: HO.HGI 14:16
PROVIDERS: PCP Family Medicine; Visit Provider Nurse Practitioner Family
DX: Z01.818 Encounter for other preprocedural examination (principal); Z12.11 Encounter for screening for malignant neoplasm of colon
CPT/HCPCS: 99203

== ENCOUNTER → 2024-11-12 14:15 | Outpatient (BNVA) | payer OTHER, SELFPAY | PROVIDERS: PCP Family Medicine; Visit Provider Nurse Practitioner Family | DX: Z01.818 Encounter for other preprocedural examination (principal) | CPT/HCPCS: 99202 ==

== ENCOUNTER 2024-12-24 16:06 | Outpatient (REF) | payer OTHER, SELFPAY ==
--- OUTSIDE RECORDS SUMMARY | 2013-03-08 11:54 | XMS_ITS | Continuity of Care Document ---
Author Organization [facility] Address [address] [place] [address] Phone Care Team Providers Care Pocket And Pulley Machine Operator Name Role Phone José Miguel Pinto MD Unavailable Unavailable Procedures Procedure Date INITIAL HOSPITAL CARE SUBSEQUENT HOSPITAL CARE Advance Directives Directive Yes / No Effective Date File Name No Information Encounters Encounter Description Practice Location Reason(s) For Visit Diagnoses Date Provider Providers Copied on Encounter [facility], [address], [place], [id number], tel:[phone] Alex Main No Information [place] José Miguel. [address], [place], [id number]. tel:[phone] [facility], [address], [id number], [place] tel:[phone] [facility] IP No Information Millie José Miguel. [address], [address]. tel:[phone] Family History Family Member Type Diagnosis Age At Onset No Information Payers Payer name Insurance type Covered green party ID Authoriza tion(s) [facility] Blue [facility] [id number] Social History Type Description Quantity Date Captured [...]
--- NOTE | ~2024-12-24 | US_ITS ---
EXAMINATION: US RETROPERITONEUM HISTORY: R33.8 - Other retention of urine TECHNIQUE: Real-time grayscale ultrasound imaging of the kidneys was performed and images were reviewed. COMPARISON: Correlation is made with a CT of the abdomen and pelvis dated 03/22/2024. FINDINGS: Right kidney: The right kidney measures 8.9 x 4.1 x 4.7 cm. Renal parenchymal echotexture and thickness are normal. There are no masses. There is no hydronephrosis or renal calculi. Left Kidney: The left kidney measures 11.3 x 5.5 x 5.6 cm. There is prominence of the renal pyramids. Renal parenchymal thickness is normal. There is a lower pole cyst measuring 10 x 6 x 7 mm. There is no hydronephrosis or renal calculi. There is a large amount of particulate debris in the urinary bladder. There are multiple bladder diverticula. These measure up to 6.7 x 3.7 x 5.3 cm. There are likely calculi within the bladder diverticula. Before voiding, the urinary bladder measured 13.7 x 9.6 x 10.0 cm, for an estimated volume of 692 mL. After voiding, the urinary bladder measured 12.7 x 7.5 x 8.5 cm, for an estimated volume of 425 mL. The prostate measures 2.5 x 3.3 x 3.0 cm, for an estimated volume of 12.8 mL. US/US retroperitoneal comp IMPRESSION: 1. Prominence of the left renal pyramids. 10 mm left lower pole renal cyst. 2. Large amount of particulate debris in the urinary bladder. Multiple bladder diverticula. 3. Post void bladder residual of 425 mL. 4. Prostate volume of 12.8 mL. Electronically signed by: Richard Feliz MD 12/27/2024 07:05 AM EDT
--- OUTSIDE RECORDS SUMMARY | 2024-12-24 16:14 | XMS_ITS | Clinical Summary ---
Author Organization [facility] it Address [address] [place] [address] Care Team Providers Care Cms Expert Name Role Phone Unavailable Primary Care Provider [...] 02/27/2022 Social Influencers of Health Screening 02/27/2022 Depression Screening 03/31/2024 COVID-19 Vaccine (1 - 2023-2 5 season) 2024 Influenza Vaccine (#1) 2024 RSV Immunization Adult [...]
== END 2024-12-24 16:07 | disposition home or self-care (01) ==
LOC: HO.US 16:06
PROVIDERS: PCP Family Medicine; Visit Provider Nurse Practitioner Family
DX: R33.8 Other retention of urine (principal); R33.9 Retention of urine, unspecified; N32.3 Diverticulum of bladder; Z87.898 Personal history of other specified conditions
CPT/HCPCS: 76770

== ENCOUNTER → 2024-12-24 16:09 | Outpatient (BNV) | payer OTHER, SELFPAY | PROVIDERS: PCP Family Medicine; Visit Provider Radiology Diagnostic Radiology | DX: N28.1 Cyst of kidney, acquired (principal); R33.9 Retention of urine, unspecified | CPT/HCPCS: 76770 ==

== ENCOUNTER 2025-02-21 16:48 | Outpatient (REF) | payer OTHER, SELFPAY ==
[2025-02-21 17:49] LABS: PSA,Total (Free>4and<10) 2.41 ng/mL (0.00-4.00)
--- OUTSIDE RECORDS SUMMARY | 2025-02-21 20:28 | XMS_ITS | Clinical Summary ---
Author Organization [facility] ity Address [address] [place] [address] Care Team Providers Care It Portfolio Manager Name Role Phone Unavailable Primary Care Provider Unavailabl e Social History Tobacco Use Types Packs/Day Years Used Date Smoking Tobacco: Never Assessed Sex and Gender Information Value Date Recorded Sex Assigned at Not on file Legal Sex Male 3:04 PM EST Gender Identity Not on file Sexual Orientation Not on file Plan of Treatment Health Maintenance Due Date Last Done Comments Colorectal Cancer Screening: Colonoscopy 1961 DTaP,Tdap,and Td Vaccines (1 - Tdap) 1980 Pneumococcal Vaccine: 50+ Ye ars (1 of 1 - PCV) 06/08/2011 Zoster Vaccines (1 of 2) 06/08/2011 Cholesterol Screening (Lipid Panel) 02/27/2022 HIV Screening 02/27/2022 Hepatitis C Screening 02/27/2022 Social Influencers of Health Screening 02/27/2022 Depression Screening 03/31/2024 COVID-19 Vaccine (1 - 2024-2 6 season) 2024 Influenza Vaccine (#1) 2024 RSV [...]
== END 2025-02-21 16:49 | disposition home or self-care (01) ==
LOC: HO.LAB 16:48
PROVIDERS: PCP Family Medicine; Visit Provider Nurse Practitioner Family
DX: R97.20 Elevated prostate specific antigen [PSA] (principal)
CPT/HCPCS: 36415; 84153

== ENCOUNTER 2025-03-16 11:42 | Outpatient (AMB) | payer OTHER, SELFPAY ==
--- NOTE | 2025-03-16 11:42 | MHC.OFFVIS ---
Intake Visit Reasons: PSA Follow up Intake Note: Patient is present for PSA F/U PSA:2.41 Urology Medication:TERAZOSIN,BETHANECHOL CHLORIDE Antibiotic Allergy:NONE Blood Thinner:NONE Process Mold Technician Required: No Allergies bee pollen Allergy (Verified 03/16/25 13:00) Anaphylaxis Medication List - Last Reconciled 03/16/25 by MAE MccannP- bethanechol chloride 50 mg PO BID 90 days bisacodyl (Dulcolax (bisacodyl)) 20 mg (4 x 5 mg) PO ONCE 1 day cetirizine 10 mg PO DAILY PRN epinephrine (EpiPen 2-Juan Pablo) 0.3 mg (0.3 mL) IM Q4H PRN 30 days polyethylene glycol 3350 (Miralax) 238 grams PO ONCE 1 day HPI Comments Details: eKvin Butts is a very pleasant 64-year-old male patient of Dr. Degroot. Has a past medical history of left femur fracture in 2021. He presents to the office today for follow-up of his incomplete bladder emptying/urinary retention, elevated PSA, and microscopic hematuria in the setting of nicotine dependence. During last office visit patient underwent an office cystoscopy with Dr. Clark for his history of microscopic hematuria in the setting of nicotine dependence. Cystoscopy noted large bladder and small diverticula. Recommendations were made for timed voiding every 4 hours. In discussion with the patient today he reports to be doing and feeling well. Recent PSA results reviewed with the patient today as noted and trended below. He denies having had any bothersome urinary issues or concerns since his last office visit here. He continues with timed/scheduled voiding and feels this has been helpful. We did discuss decreased PSA as well as labile PSA. He reports compliance with bethanechol as prescribed. However he does feel at times he experiences increased sweating with the medication. We did discuss potential side effects. We did review in discussed further treatment options of incomplete bladder emptying. We did discuss CIC however he would not like to proceed at this time. He discusses his previous history with following up with [facility]. Previous workup has also included CT urogram 03/23 noting There are 2 posterolateral bladder diverticula present measuring just over 3 cm in size bilaterally. Each has a neck of 1 cm or less. No bladder masses are seen. He does continue to smoke however is limiting how much she is smoking. We did discuss the importance of smoking cessation. We discussed at length incomplete bladder emptying and urinary retention we discussed further treatment options and risks and benefits of these treatment options. PSAs are as follows: PSA: 12/22 1.7, 03/23 0.8, 06/22 4.1, 02/22 2.4 He does report urinary hesitancy and feeling of incomplete bladder emptying. He otherwise denies urinary urgency, urinary frequency, incontinence, nocturia, dysuria, foul smelling urine, changes to urinary stream, flank pain, fever, and or chills. Urine cytologies are as follows: 01/21, 03/23, 10/22:Negative for high-grade urothelial carcinoma. 09/22: Rare atypical squamous cells [facility] Medical History History of TIAs Nicotine dependence, cigarettes, uncomplicated Femur fracture, left Surgical History History of open reduction and internal fixation (ORIF) procedure History of left hip replacement Social History Housing: Apartment Patient Tobacco Use Status: Current everyday Tobacco user Tobacco use type: Cigarette Cigarettes Per Day: 6 Years Smoked: (onset 12yo, 1-1.5ppd x 52yrs, now <1/2ppd, 45+PYH) e-Cigarette/Vaping Use: Never Used Second Hand Smoke Exposure: Yes service: No Current occupational status: employed Current occupation: maintence Current occupational exposures/hazards: Yes Cognitive needs: No Hearing needs: No Vision needs: Yes Review of Systems Const All systems reviewed & are unremarkable except as noted in HPI and below Physical Exam Const General: healthy appearing, comfortable, no acute distress, well developed, alert and awake Resp Effort & Inspection: normal respiratory effort and able to speak in complete sentences Psych Appearance: well kempt Speech and movement: Normal speech and movement present and Clear speech present Affect: normal affect Attitude: cooperative Thought process: Normal thought process present Thought content: Normal thought content present Insight: Fair insight present (Psych) Judgement: Fair judgement present (Psych) Telehealth Telehealth Telehealth Platform: Telephone Location of provider rendering services: practice address Location of patient: address on file Patient Identification confirmed using: Name, : Yes Telehealth method: video Patient verbally consented to treatment: Yes Patient verbally consented to billing insurance company: Yes Patient informed of any privacy concerns related to visit: Yes Minutes spent on Phone/Video with Pt.: 20 Assessment & Plan Assessment & Plan (1) Microscopic hematuria: Code(s): R31.29 - Other microscopic hematuria Category: Medical (2) Acute urinary retention: Code(s): R33.8 - Other retention of urine Category: Medical (3) Incomplete bladder emptying: Code(s): R33.9 - Retention of urine, unspecified Category: Medical (4) Bladder diverticulum: Code(s): N32.3 - Diverticulum of bladder Category: Medical (5) Elevated PSA: Code(s): R97.20 - Elevated prostate specific antigen [PSA] Category: Medical Plan Recent PSA results reviewed with the patient today; as noted above. Continue bethanechol. We did discussed at length further treatment options of incomplete bladder emptying and risks and benefits of these treatment options. All questions were answered. Will continue with surveillance monitoring. Follow-up in 3 months with [facility]; or sooner with any issues, concerns, and or questions. Patient Instructions: The patient had an opportunity to ask questions regarding the treatment plan. All questions were answered. Physical exam, labs, and imaging were discussed and reviewed in detail. As well as risks, benefits, and discussion of treatment choices. No major barriers to understanding were identified. The patient expressed understanding and agreement with the above treatment plan. The patient was made aware they should contact our office by phone for worsening of their current condition, the appearance of new symptoms, or with any questions or concerns. Compliance is encouraged with any medications and follow up testing that is ordered. It is a privilege to be allowed the opportunity to participate in? your urological care.? Again, if you have any questions or concerns If you have any questions or concerns please do not hesitate to contact me. The office is [phone]. This note is constructed using voice recognition software. While every effort has been made to ensure accuracy warehouse picker errors may have been included. Yours sincerely, CELSA Mccann Coding Level of Care Code Tele Est Pt Level 3 (23063) Add On Problem Visit Only Diagnoses Microscopic hematuria R31.29 Acute urinary retention R33.8 Incomplete bladder emptying R33.9 Bladder diverticulum N32.3 Elevated PSA R97.20
--- OUTSIDE RECORDS SUMMARY | 2025-03-16 15:33 | XMS_ITS | Clinical Summary ---
Author Organization [facility] ity Address [address] [place] [address] Care Team Providers Care Berry Picker Machine Operator Name Role Phone Unavailable Primary Care [...]
== END 2025-03-16 12:18 | disposition home or self-care (01) ==
LOC: HO.HUSH 11:42
PROVIDERS: PCP Family Medicine; Visit Provider Nurse Practitioner Family
DX: R31.29 Other microscopic hematuria (principal); R33.8 Other retention of urine; R33.9 Retention of urine, unspecified; N32.3 Diverticulum of bladder; R97.20 Elevated prostate specific antigen [PSA]
CPT/HCPCS: 99213